=== PATIENT | male | born 1935 | race African-American/Black ===

== ENCOUNTER 2021-06-04 13:49 | Emergency (ER) | payer OTHER, BC ==
--- NOTE | 2021-06-04 15:54 | RAD REPORT ---
EXAM DESCRIPTION: RAD - Chest Single View - 06/04/2021 3:35 pm CLINICAL HISTORY: SOB COMPARISON: Chest Pa And Lat (2 Views) dated 10/31/2017; Chest Single View dated 02/27/2016; CHEST PA AND LAT 2 VIEW dated 01/09/2014; CHEST SINGLE VIEW dated 08/04/2012 FINDINGS: There are a few scattered nonspecific nodular foci within the mid lungs bilaterally. No ed arie or consolidation. The heart size is within normal limits.No acute osseous abnormality. No signifi cant pleural effusions or pneumothorax. IMPRESSION: A few scattered nodular foci within the lungs bilaterally could represent infection. No consolidative process or edema.
[2021-06-04 16:32] LABS: Absolute Lymphocytes (CBC) 1.2 K/uL (0.7-4.9); Basophils % 1.1 % (0-1.3); Hematocrit 37.9 % (39.6-49.0); MPV 8.4 fL (7.6-11.3); RBC Red Blood Cell Count 4.27 M/uL (4.33-5.43)
[2021-06-04 16:34] LABS: Protime INR 0.98
[2021-06-04 16:53] LABS: ALT/SGPT 22 U/L (12-78); AST/SGOT 19 U/L (15-37); Albumin 3.3 g/dL (3.4-5.0); Alkaline Phosphatase 64 U/L (45-117); BUN Blood Urea Nitrogen 50 mg/dL (7-18); Bicarbonate 26 mmol/L (21-32); Bilirubin Direct < 0.1 mg/dL (0-0.2); Bilirubin Total 0.3 mg/dL (0.2-1.0); Glucose Level 98 mg/dL (74-106); Magnesium 1.9 mg/dL (1.8-2.4); NT PRO-BNP 171 pg/mL (<450); Protein, Total 7.1 g/dL (6.4-8.2); Sodium Level 144 mmol/L (136-145); Troponin (Emerg Dept Use Only) < 0.02 ng/mL (0.0-0.045)
--- NOTE | 2021-06-04 17:19 | ER ---
Nurse's Notes [facility] Name: Remigio Akins Age: 86 yrs Sex: Male : 1935 Arrival Date: 06/04/2021 Time: 13:58 Bed 13 Private MD: William Sweet B Diagnosis: Other pneumonia, unspecified organism Presentation: 06/04 14:29 Chief complaint: Patient states: Shortness of breath for several weeks with exertion. kg Cough and sore throat starting this AM. Coronavirus screen: Client denies travel out of the [place] in the last 14 days. At this time, unable to obtain information related to travel outside the [place] At this time, the client does not indicate any symptoms associated with coronavirus-19. Coronavirus screen: Client presents with at least one sign or symptom that may indicate coronavirus-19. Standard/surgical mask placed on the client. Provider contacted for isolation considerations. Ebola Screen: Patient negative for fever greater than or equal to 101.5 degrees Fahrenheit, and additional compatible Ebola Virus Disease symptoms Patient denies exposure to infectious person. Patient denies travel to an Ebola-affected area in the 21 days before illness onset. Initial Sepsis Screen: Does the patient meet any 2 criteria? No. Patient's initial sepsis screen is negative. Does the patient have a suspected source of infection? No. Patient's initial sepsis screen is negative. Risk Assessment: Do you want to hurt yourself or someone else? Patient reports no desire to harm self or others. Onset of symptoms was June 04, 2021. 14:29 Method Of Arrival: Ambulatory kg 14:29 Acuity: RUDDY 3 kg Triage Assessment: 17:40 Respiratory: Onset: The symptoms/episode began/occurred at an unknown time. zb Historical: - Allergies: 14:32 Iodine; kg - PMHx: 14:32 Hypertension; kidney problems; Sleep apnea; kg - PSHx: 14:32 None; kg - Immunization history:: Adult Immunizations up to date, Client reports receiving the 2nd dose of the Covid vaccine, Date received: January 07, 2021. - Social history:: Smoking status: Patient denies any tobacco usage or history of. Screenin:34 Abuse screen: Denies threats or abuse. Denies injuries from another. Nutritional kg screening: No deficits noted. Tuberculosis screening: No symptoms or risk factors identified. Fall Risk None identified. Assessment: 14:35 Respiratory: Airway is patent Respiratory effort is even, unlabored, relaxed. kg 15:57 General: Appears in no apparent distress. Behavior is calm, cooperative. Pain: Denies zb pain. Neuro: Level of Consciousness is awake, alert, Oriented to person, place, time, situation. Cardiovascular: Heart tones S1 S2 present Patient's skin is warm and dry. Rhythm is regular. Respiratory: Reports shortness of breath on exertion Airway is patent Respiratory effort is shallow, Respiratory pattern is regular, symmetrical, Breath sounds with wheezes bilaterally. the patient has moderate shortness of breath. GI: Abdomen is obese. Derm: Skin is intact, is healthy with good turgor. Musculoskeletal: Range of motion: intact in all extremities. 16:30 Reassessment: Patient appears in no apparent distress at this time. Patient and/or zb family updated on plan of care and expected duration. Pain level reassessed. Patient is alert, oriented x 3, equal unlabored respirations, skin warm/dry/pink. 17:38 Reassessment: Patient appears in no apparent distress at this time. Patient and/or zb family updated on plan of care and expected duration. Pain level reassessed. Patient is alert, oriented x 3, equal unlabored respirations, skin warm/dry/pink. Vital Signs: 14:29 BP 129 / 76; Pulse 91; Resp 20; Temp 98.6; Pulse Ox 98% on R/A; Weight 141.11 kg (M); kg Height 5 ft. 10 in. (177.80 cm); Pain 0/10; 15:30 BP 113 / 68; Pulse 84; Resp 19; Pulse Ox 98% on R/A; zb 16:30 BP 118 / 69; Pulse 76; Resp 16; Pulse Ox 97% on R/A; zb 17:35 BP 135 / 65; Pulse 75; Resp 16; Pulse Ox 99% on NC; zb 14:29 Body Mass Index 44.64 (141.11 kg, 177.80 cm) kg ED Course: 13:58 Patient arrived in ED. am2 13:58 William Sweet MD is Private Physician. am2 14:31 Triage completed. kg 14:34 Patient has correct armband on for positive identification. kg 15:05 Brown, Hemalatha, RN is Primary Nurse. zb 15:09 Nam Dominguez PA is PHCP. cp 15:09 Edvin Webster MD is Attending Physician. cp 15:35 XRAY Chest (1 view) In Process Unspecified. EDMS 15:58 Missed attempt(s): 20 gauge in right antecubital area. 22 gauge in left antecubital zb area. 16:23 Initial lab(s) drawn, by me, sent to lab. Inserted saline lock: 20 gauge in right iw antecubital area, using aseptic technique. 17:18 William Sweet MD is Referral Physician. cp 17:40 Arm band placed on. zb 17:40 No provider procedures requiring assistance completed. IV discontinued, intact, zb bleeding controlled, No redness/swelling at site. Pressure dressing applied. Administered Medications: No medications were administered Outcome: 17:19 Discharge ordered by . cp 17:40 Patient left the ED. zb 17:40 Discharged to home ambulatory. zb 17:40 Condition: stable 17:40 Discharge instructions given to patient, Instructed on discharge instructions, follow up and referral plans. Demonstrated understanding of instructions, follow-up care, medications, Prescriptions given X 3. Signatures: Dispatcher [employer] EDMS Blessing eBan RN RN iw Page, Corey, PA PA cp Kusum Szymanski am2 Hemalatha Mai RN RN zKadie Valderrama RN RN kg
--- NOTE | 2021-06-04 17:19 | EDPHYS ---
Physician Documentation [facility] Name: Remigio Akins Age: 86 yrs Sex: Male : 1935 Arrival Date: 06/04/2021 Time: 13:58 Bed 13 Private MD: William Sweet B ED Physician Edvin Webster HPI: 06/04 14:50 This 86 yrs old Black Male presents to ER via Ambulatory with complaints of Breathing cp Difficulty, Shortness Of Breath. 14:50 The patient has shortness of breath with light activity. Onset: The symptoms/episode cp began/occurred 2 week(s) ago. Duration: The symptoms are continuous. Associated signs and symptoms: Pertinent positives: non-productive cough, Pertinent negatives: chest pain, diaphoresis, dizziness, fever, vomiting. Severity of symptoms: in the emergency department the symptoms are unchanged despite home interventions. Historical: - Allergies: 14:32 Iodine; kg - PMHx: 14:32 Hypertension; kidney problems; Sleep apnea; kg - PSHx: 14:32 None; kg - Immunization history:: Adult Immunizations up to date, Client reports receiving the 2nd dose of the Covid vaccine, Date received: January 07, 2021. - Social history:: Smoking status: Patient denies any tobacco usage or history of. ROS: 15:00 Constitutional: Negative for body aches, chills, fever, poor PO intake. cp 15:00 Eyes: Negative for injury, pain, redness, and discharge. cp 15:00 ENT: Positive for sore throat, Negative for ear pain, difficulty swallowing, difficulty handling secretions. 15:00 Cardiovascular: Negative for chest pain, palpitations. 15:00 Respiratory: Positive for cough, with no reported sputum, shortness of breath, on exertion. Negative for wheezing. 15:00 Abdomen/GI: Negative for abdominal pain, nausea, vomiting, and diarrhea. 15:00 Neuro: Negative for altered mental status, headache, syncope, weakness. 15:00 All other systems are negative. Exam: 15:05 Constitutional: The patient appears in no acute distress, alert, awake, cp non-diaphoretic, non-toxic, well developed, well nourished, obese. 15:05 Head/Face: Normocephalic, atraumatic. cp 15:05 Eyes: Periorbital structures: appear normal, Conjunctiva: normal, no exudate, no injection, Sclera: no appreciated abnormality, Lids and lashes: appear normal, bilaterally. 15:05 ENT: External ear(s): are unremarkable, Ear canal(s): are normal, clear, TM's: dullness, bilaterally, Nose: is normal, Mouth: Lips: moist, Oral mucosa: moist, Posterior pharynx: Airway: no evidence of obstruction, patent, Voice: is normal. 15:05 Neck: ROM/movement: is normal, is supple, without pain, no range of motions limitations. 15:05 Chest/axilla: Inspection: normal, Palpation: is normal, no crepitus, no tenderness. 15:05 Cardiovascular: Rate: normal, Rhythm: regular, Edema: ankle edema, that is very mild, JVD: is not appreciated. 15:05 Respiratory: the patient does not display signs of respiratory distress, Respirations: normal, no use of accessory muscles, no retractions, labored breathing, is not present, Breath sounds: are clear throughout, no decreased breath sounds, no stridor, no wheezing. 15:05 Abdomen/GI: Inspection: abdomen appears normal, Palpation: abdomen is soft and non-tender, in all quadrants. 15:05 Skin: no rash present. cp 15:05 Neuro: Orientation: to person, place \T\ time. Mentation: is normal, Cerebellar function: is grossly normal, Motor: moves all fours, strength is normal, Sensation: is normal. 15:48 ECG was reviewed by the Attending Physician. cp Vital Signs: 14:29 BP 129 / 76; Pulse 91; Resp 20; Temp 98.6; Pulse Ox 98% on R/A; Weight 141.11 kg (M); kg Height 5 ft. 10 in. (177.80 cm); Pain 0/10; 15:30 BP 113 / 68; Pulse 84; Resp 19; Pulse Ox 98% on R/A; zb 16:30 BP 118 / 69; Pulse 76; Resp 16; Pulse Ox 97% on R/A; zb 17:35 BP 135 / 65; Pulse 75; Resp 16; Pulse Ox 99% on NC; zb 14:29 Body Mass Index 44.64 (141.11 kg, 177.80 cm) kg MDM: 15:29 Patient medically screened. cp 16:00 Differential diagnosis: CHF exacerbation, Chronic Obstructive Pulmonary Disease cp Myocardial Infarction pneumonia, Pneumothorax pulmonary edema, Pulmonary Embolism Sepsis Unstable Angina. 17:19 Data reviewed: vital signs, nurses notes, lab test result(s), EKG, radiologic studies, cp plain films, and as a result, I will discharge patient. 17:19 Test interpretation: by ED physician or midlevel provider: ECG, plain radiologic cp studies. 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 06/04 14:36 Order name: Strep kg 06/04 14:36 Order name: Group A Streptococcus Rapid Sc; Complete Time: 15:18 [facility] 06/04 15:07 Order name: Throat Culture [facility] 06/04 15:18 Order name: Basic Metabolic Panel; Complete Time: 17:11 06/04 17:11 Interpretation: Normal except: CL 109; BUN 50; CRE 2.48; GFR 30. 06/04 15:18 Order name: CBC with Diff; Complete Time: 17:11 06/04 17:12 Interpretation: Normal except: RBC 4.27; HGB 12.0; HCT 37.9; MCHC 31.6; RDW 17.6. 06/04 15:18 Order name: LFT's; Complete Time: 17:11 06/04 17:15 Interpretation: Normal except: ALB 3.3; GLOB 3.8; A/G 0.9. 06/04 15:18 Order name: Magnesium; Complete Time: 17:11 06/04 15:18 Order name: NT PRO-BNP; Complete Time: 17:11 06/04 15:18 Order name: PT-INR; Complete Time: 17:11 06/04 15:18 Order name: Troponin (emerg Dept Use Only); Complete Time: 17:11 06/04 15:19 Order name: Influenza Screen (a \T\ B); Complete Time: 17:11 06/04 17:04 Order name: SARS-COV-2 RT PCR; Complete Time: 17:11 EDMS 06/04 15:18 Order name: XRAY Chest (1 view); Complete Time: 15:55 06/04 15:55 Interpretation: Report review. 06/04 15:18 Order name: EKG; Complete Time: 15:19 06/04 15:18 Order name: Cardiac monitoring; Complete Time: 15:57 06/04 15:18 Order name: EKG - Nurse/Tech; Complete Time: 15:57 06/04 15:18 Order name: IV Saline Lock; Complete Time: 16:24 06/04 15:18 Order name: Labs collected and sent; Complete Time: 16:24 06/04 15:18 Order name: O2 Per Protocol; Complete Time: 15:57 06/04 15:18 Order name: O2 Sat Monitoring; Complete Time: 15:57 cp EC:48 Rate is 82 beats/min. Rhythm is regular. CT interval is normal. QRS interval is normal. cp QT interval is normal. Interpreted by me. Reviewed by me. Administered Medications: No medications were administered Disposition Summary: 06/04/21 17:19 Discharge Ordered Location: Home cp Problem: new cp Symptoms: have improved cp Condition: Stable cp Diagnosis - Other pneumonia, unspecified organism cp Followup: cp - With: William Sweet MD - When: 2 - 3 days - Reason: Recheck today's complaints Discharge Instructions: - Discharge Summary Sheet cp - Community-Acquired Pneumonia, Adult cp Forms: - Medication Reconciliation Form cp - Thank You Letter cp - Antibiotic Education cp - Prescription Opioid Use cp Prescriptions: - albuterol sulfate 90 mcg/actuation Inhalation HFA aerosol inhaler - inhale 1 puff by INHALATION route every 4-6 hours; 1 Inhaler; Refills: 0, cp Product Selection Permitted - Tessalon Perles 100 mg Oral Capsule - take 2 capsule by ORAL route every 8 hours As needed; 20 capsule; Refills: 0, cp Product Selection Permitted - Zithromax Z-Santiago 250 mg Oral Tablet - take 1 tablet by ORAL route as directed for 5 days Day 1 - take two (2) tablets cp one time. Day 2, 3, 4 , 5 take one (1) tablet once daily.; 6 tablet; Refills: 0, Product Selection Permitted Addendum: 06/06/2021 17:07 Co-signature as Attending Physician, Edvin mayers a2 Signatures: Dispatcher [employer] EDMS Nam Dominguez PA PA cp Edvin Webster MD MD ma2 Kadie Ferguson, RN RN kg Corrections: (The following items were deleted from the chart) 06/04 15:44 14:34 Chest Pa And Lat (2 Views)+RAD.RAD.BRZ ordered. EDMS EDMS 16:13 15:19 CORONAVIRUS+MR.LAB.BRZ ordered. EDMS EDMS
[2021-06-04 18:30] VITALS: TEMP 98.6
[2021-06-04 18:34] VITALS: BP 135/65; O2SAT 99
== END 2021-06-04 17:40 | disposition home or self-care (01) ==
LOC: ER 13:49
DX: J18.8 Other pneumonia, unspecified organism (principal); I10 Essential (primary) hypertension; Z91.048 Other nonmedicinal substance allergy status; Z20.822 Contact with and (suspected) exposure to COVID-19
CPT/HCPCS: 93005; 87070; 85025; 80048; 36415; 83735; 85610; 80076; 87081; 84484; 83880; 87804 ×2; 71045; 99284; U0003

== ENCOUNTER 2022-06-29 11:16 | Inpatient (IN) | payer OTHER, BC ==
--- OUTSIDE RECORDS SUMMARY | 2022-06-29 11:19 | XMS REPORT | Continuity of Care Document ---
:1935 Author Organization [facility] t Address [address] [place] [address] 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- Colleg e of left of left 00:00: of eye eye 00 Medicin e 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-21 College borderline borderline 00:00: of findings, findings, 00 Medi alfonso high risk high risk e 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 Colleg 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 00 Medicin cataract cataract e Allergies, Adverse Reactions, Alerts Allergy Allergy Status Severity Reaction(s) Onset Inactive Treating Comm ents Source Name Type Date Date Clinician Iodides Propensi Active Rash 2015-11 [facility] ty to 12-20 College adverse 00:00: of reaction 00 Medicin s to e drug Iodine Propensi Active Rash [facility] ty to 03-21 College adverse 00:00: of reaction 00 Medicin s to e drug Social History Social Habit Start Date Stop Date Quantity Comments Source Alcohol intake [facility] Sex Assigned At [facility] Smoking Status Start Date Stop Date Source Former smoker 2019-08-28 00:00:00 2019-08-28 00:00:00 [facility] Medicine Medications Ordered Filled Start Stop Current Ordering Indication Dosage Frequency Signature Comments Components Source Medication Medication Date Date Medication? Clinician (SIG) Name Name bisoprolol 2017-11 Yes 5mg Take 5 mg [facility] (ZEBETA) 5 1-20 by mouth Colle ge MG tablet 20:34: daily. of 00 Medicin e doxazosin 2017-11 Yes 2mg Take 2 mg Larned maru (CARDURA) 2 1-20 by mouth Rehana ege MG tablet 20:34: daily. of 00 Medicin e allopurinol 2017-11 Yes 300mg Take 300 [facility] (ZYLOPRIM) 1-20 mg by College 300 MG 20:34: mouth of tablet 00 daily. Medicin e losartan-hy 2017-11 Yes 1{tbl} Take 1 Tab Sami drochloroth 1-20 by mouth Rehana ege iazide 20:34: daily. of (HYZAAR) 00 Medicin 100-25 MG e per tablet amlodipine 2017-11 Yes 10mg Take 10 mg [facility] (NORVASC) 1-20 by mouth Colleg e 10 MG 20:34: daily. of tablet 00 Medicin e spironolact 2017-11 Yes 25mg Take 25 mg [facility] one 1-20 by mouth [place] (ALDACTONE) 20:34: daily. of 25 MG 00 Medicin tablet e bumetanide 2017-11 Yes .5mg Take 0.5 Larned maru (BUMEX) 0.5 1-20 mg by [place] MG tablet 20:34: mouth of 00 daily. Medicin e pediatric 2017-11 Yes 1{tbl} Take 1 Tab [facility] multivitami 1-20 by mouth Rehana ege n-fluoride 20:34: daily. of (POLY--FL 00 Medicin OR) 0.25 MG e chewable tablet Cyanocobala 2017-11 Yes Take by Larned maru min 1-20 mouth. [place] (VITAMIN B 20:34: of 12 OR) 00 Medicin e Loteprednol 2014-11 2019- No 1[drp] Place 1 [facility] Etabonate 0-01 10-16 Drop into Rehana ege (LOTEMAX) 00:00: 00:00 the left of 0.5 % GEL 00 :00 eye 3 Medicin times e daily. trimethopri 2014-11 2019- No 1[drp] Place 1 [facility] m-polymyxin 0-01 10-16 Drop into Co llege b 00:00: 00:00 the left of (POLYTRIM) 00 :00 eye 3 Medicin ophthalmic times e solution daily. Loteprednol 2019- No 1[drp] Place 1 [facility] Etabonate 06-24 10-16 Drop into Rehana ege (LOTEMAX) 00:00: 00:00 the right of 0.5 % GEL 00 :00 eye four Medici n times e daily. Nepafenac 2019- No 1[drp] Place 1 [facility] (ILEVRO) 8 10-16 Drop into Colle ge 0.3 % SUSP 00:00: 00:00 the right o f 00 :00 eye daily. Medicin e moxifloxaci 2019- No 1[drp] Place 1 [facility] n (VIGAMOX) 06-24 10-16 Drop into Co llege 0.5 % 00:00: 00:00 the right of ophthalmic 00 :00 eye 3 Medicin solution times e daily. Start the day before surgery Procedures Procedure Date / Time Performed Performing Clinician [facility] e OCT, OPTIC NERVE - OU 2019-08-28 19:09:06 Jem [facility] BOTH EYES Medicine CANTOR VISUAL FIELD 2019-08-28 18:15:56 [place], [facility] OU - BOTH EYES Medicine Plan of Care Planned Activity Planned Date Details Comments Source Future Scheduled Test MEDICARE AWV [code = [facility] MEDICARE AWV] Medicine Future Scheduled Test TETANUS SHOT (ADULT) [facility] [code = TETANUS SHOT Medicin e (ADULT)] Future Scheduled Test FALL SCREEN [code = [facility] FALL SCREEN] Medicine Future Scheduled Test PNEUMOVAX >=65 [facility] (PPSV23) [code = Medicine PNEUMOVAX >=65 (PPSV23)] Future Scheduled Test PREVNAR >= 65 (PCV13) [facility] [code = PREVNAR >= 65 Medici ne (PCV13)] Future Scheduled Test FLU VACCINE > 6 [facility] [code = FLU Medicine VACCINE > 6 MONTHS] Encounters Start End Encounter Admission Attending Care Care Encounter Source Date/Time Date/Time Type Type Clinicians Facility Department ID 2021-09-08 2021-09-08 Outpatient JOSE CHO BC [id number] [facility] 09:32:32 12:36:49 ANDRES dodson of Medicin e 2019-08-28 2019-08-28 Office Andres Cho [id number] [facility] 12:52:46 15:14:35 Visit 3, Ods AMBULATOR [id number] College Field-Hrt, Visual Y [id number] of [id number] [facility] 300 e Results Test Description Test Time Test Comments Results Result [facility] e Comments CANTOR VISUAL 2019-08-28 VF Interpretation Ba y[facility] FIELD - OU - BOTH 20:14:12 OD OS Reliability [place] of EYES Good Good Defect Medicine None None Progression no no OCT, OPTIC NERVE 2019-08-28 OCT Glaucoma [facility] - OU - BOTH EYES 20:13:10 Interpretation OD C ollege of OS Quality Good Medicine Good Interpretation Normal Normal Change Stable Stable
[2022-06-29 11:59] LABS: Absolute Lymphocytes (CBC) 1.4 K/uL (0.7-4.9); Lymphocytes % 25.5 % (15.3-44.8); MCV 88.9 fL (80-100); MPV 8.5 fL (7.6-11.3); RBC Red Blood Cell Count 4.06 M/uL (4.33-5.43)
--- NOTE | 2022-06-29 12:21 | RAD REPORT ---
EXAM DESCRIPTION: RAD - Chest Single View - 06/29/2022 11:47 am CLINICAL HISTORY: SOB Chest pain. COMPARISON: Chest Single View dated 06/04/2021; Chest Pa And Lat (2 Views) dated 10/31/2017; Chest Si ngle View dated 02/27/2016; CHEST PA AND LAT 2 VIEW dated 01/09/2014 FINDINGS: Portable technique limits examination quality. Mild interstitial pulmonary edema suspected. The heart is mildly enlarged in size. No displaced fract ures. IMPRESSION: Mild CHF is probably present.
[2022-06-29 12:22] LABS: Potassium 3.9 mmol/L (3.5-5.1); Troponin High Sensitivity 25.7 pg/mL (<58.9)
[2022-06-29] MEDS ORDERED: IPRATROPIUM BROM 0.5MG/2.5ML ONE ×2 (12:41→19:55)
[2022-06-29] MEDS ORDERED: ALBUTEROL 2.5 MG/3 ML NEB SOL ONE ×2 (12:41→19:55)
--- NOTE | 2022-06-29 15:04 | RAD REPORT ---
EXAM DESCRIPTION: NM - Vent Perfusion VQ Scan - 06/29/2022 2:44 pm CLINICAL HISTORY: shortness of breath COMPARISON: Portable chest 06/29/2022 TECHNIQUE: The patient was administered 19.5 mCi Xenon 133 gas with posterior projection inspiration , equilibrium, and washout views obtained. The patient was then administered 7.2 mCi Tc-99m MAA label ed RBCs followed by standard 8 view protocol. FINDINGS: There is good distribution of the Xenon with no ventilation defects identified. No signifi cant air-trapping seen. There is decreased perfusion in the lower right lung field with no radiographic abnormality or dilati on match defect. Size of the defect would involve multiple segments. No significant perfusion abnorm ality of the left lung field. IMPRESSION: High probability V/Q scan for pulmonary embolism.
--- NOTE | 2022-06-29 15:34 | ER ---
Nurse's Notes [facility] Name: Remigio Akins Age: 87 yrs Sex: Male : 1935 Arrival Date: 06/29/2022 Time: 11:18 Bed 5 Private MD: William Sweet B Diagnosis: Pulmonary embolism without acute cor pulmonale;Shortness of breath;Congestive Heart Failure Presentation: 06/29 11:27 Chief complaint: Patient states: Pt feels short of breath upon exertion since May iw ; audible wheezes. Coronavirus screen: Vaccine status: Patient reports receiving the 2nd dose of the covid vaccine. Client denies travel out of the [place] in the last 14 days. Ebola Screen: Patient negative for fever greater than or equal to 101.5 degrees Fahrenheit, and additional compatible Ebola Virus Disease symptoms Patient denies exposure to infectious person. Patient denies travel to an Ebola-affected area in the 21 days before illness onset. Initial Sepsis Screen: Does the patient meet any 2 criteria? RR > 20 per min. HR > 90 bpm. Does the patient have a suspected source of infection? Yes: Productive cough/pneumonia. Risk Assessment: Do you want to hurt yourself or someone else? Patient reports no desire to harm self or others. Onset of symptoms was June 03, 2022. 11:27 Method Of Arrival: Ambulatory iw 11:27 Acuity: RUDDY 2 iw Triage Assessment: 11:29 General: Appears uncomfortable, obese, well groomed, well nourished, Behavior is calm, iw cooperative, appropriate for age. Pain: Denies pain. Respiratory: Reports shortness of breath at rest on exertion cough that is productive, Onset: The symptoms/episode began/occurred gradually, the patient has moderate shortness of breath. Historical: - Allergies: 11: Iodine; iw - PMHx: 11: Hypertension; kidney problems; Sleep Apnea; Gout; iw - Immunization history:: Adult Immunizations up to date. - Social history:: Smoking status: Patient denies any tobacco usage or history of. Screenin:30 Abuse screen: Denies threats or abuse. Denies injuries from another. Nutritional iw screening: No deficits noted. Tuberculosis screening: No symptoms or risk factors identified. Fall Risk None identified. Assessment: 11:30 General: SEE TRIAGE NOTE. bp 12:47 Reassessment: No changes from previously documented assessment. Patient and/or family bp updated on plan of care and expected duration. Pain level reassessed. Cardiovascular: Rhythm is sinus rhythm. Respiratory: Airway is patent Respiratory effort is labored, Breath sounds with wheezes bilaterally. 14:53 Reassessment: PT RETURNED FROM V/Q SCAN. bp 17:00 Reassessment: ADMIT IN PROCESS. bp 18:00 Reassessment: No changes from previously documented assessment. Patient and/or family bp updated on plan of care and expected duration. Pain level reassessed. REPEAT COAGS DUE AT 1999. Vital Signs: 11:27 BP 154 / 76; Pulse 96; Resp 22; Temp 98.6; Pulse Ox 97% ; Weight 136.08 kg; Height 5 iw ft. 11 in. (180.34 cm); Pain 0/10; 12:42 BP 108 / 62; Pulse 85; Resp 24; Pulse Ox 99% ; bp 13:20 BP 121 / 64; Pulse 90; Resp 16; Pulse Ox 98% on Nebulizer Mask; ld1 14:53 BP 136 / 54; Pulse 101; Resp 25; Pulse Ox 96% ; bp 17:04 BP 134 / 72; Pulse 90; Resp 25; Pulse Ox 95% on R/A; ld1 18:07 BP 124 / 68; Pulse 89; Resp 19; Pulse Ox 98% ; bp 11:27 Body Mass Index 41.84 (136.08 kg, 180.34 cm) iw ED Course: 11:18 Patient arrived in ED. mr 11:18 William Sweet MD is Private Physician. mr 11:19 Stephane Hallman DO is Attending Physician. ms3 11:22 Austin York, ERENDIRA is Primary Nurse. bp 11:29 Triage completed. iw 11:29 Arm band placed on right wrist. iw 11:30 Patient has correct armband on for positive identification. iw 11:36 Inserted saline lock: 20 gauge in right forearm, using aseptic technique. Blood bp collected. 11:49 XRAY Chest (1 view) In Process Unspecified. EDMS 14:46 VQ scan (Nuclear Medicine) In Process Unspecified. EDMS 15:30 Demetrius Cuellar MD is Hospitalizing Provider. ms3 20:53 No provider procedures requiring assistance completed. Patient admitted, IV remains in as6 place. Administered Medications: 12:40 Drug: Albuterol - atroVENT (ipratropium) (3:1) (2.5 mg - 0.5 mg) 3 ml Route: Nebulizer; ld1 15:27 Follow up: Response: No adverse reaction bp 15:45 Drug: Heparin (DVT/PE Drip) 18 units/kg/hr - (HEParin 33589 units, D5W 500 ml) bp {Co-Signature: tiburcio (Jocelynn Denson RN).} Route: IV; Rate: calculated rate; Site: right forearm; 20:53 Follow up: IV Status: Infusion continued upon admission as6 15:45 Drug: Heparin (DVT/PE- Bolus per protocol) - HEParin 80 units/kg {Co-Signature: rachel1 bp (Jocelynn Denson RN).} Route: IVP; Site: right forearm; 18:06 Follow up: Response: No adverse reaction bp Medication: 11:30 VIS not applicable for this client. bp Outcome: 15:33 Decision to Hospitalize by Provider. ms3 20:53 Admitted to Tele accompanied by tech, via wheelchair, room 401, with chart. as6 20:53 Condition: stable 20:53 Instructed on the need for admit. 20:55 Patient left the ED. as6 Signatures: Dispatcher [employer] SELENENH Candi Randall Irene, RN RN iw Peltier, Brian RN Stephane Tee DO DO ms3 Jocelynn Denson RN RN ld1 Reji Osuna RN RN as6 Jocelynn ramos1 Corrections: (The following items were deleted from the chart) 18:07 17:04 Reassessment: ld1 bp
--- NOTE | 2022-06-29 15:34 | EDPHYS ---
Physician Documentation [facility] Name: Remigio Akins Age: 87 yrs Sex: Male : 1935 Arrival Date: 06/29/2022 Time: 11:18 Bed 5 Private MD: William Sweet B ED Physician Stephane Hallman HPI: 06/29 15:33 This 87 yrs old Black Male presents to ER via Ambulatory with complaints of Breathing ms3 Difficulty, Low O2. 15:33 The patient has shortness of breath with light activity. Onset: The symptoms/episode ms3 began/occurred acutely, 1 month(s) ago. Duration: The symptoms are continuous. The patient's shortness of breath is aggravated by exertion, is alleviated by rest. Associated signs and symptoms: Pertinent negatives: chest pain, loss of consciousness, nausea, vomiting. Severity of symptoms: At their worst the symptoms were severe in the emergency department the symptoms are unchanged Pain is currently a 0 / 10. Historical: - Allergies: 11:29 Iodine; iw - PMHx: 11:29 Hypertension; kidney problems; Sleep Apnea; Gout; iw - Immunization history:: Adult Immunizations up to date. - Social history:: Smoking status: Patient denies any tobacco usage or history of. ROS: 15:33 Constitutional: Negative for fever, and chills. Neck: Negative for injury, pain, and ms3 swelling, Cardiovascular: Negative for chest pain, and palpitations. 15:33 Abdomen/GI: Negative for abdominal pain, nausea, vomiting, diarrhea, and constipation, MS/Extremity: Negative for injury and deformity, Skin: Negative for injury, rash, and discoloration, Neuro: Negative for headache, weakness, numbness, tingling. Psych: Negative for depression, anxiety, suicide ideation, homicidal ideation, and hallucinations. 15:33 Respiratory: Positive for shortness of breath. 15:33 All other systems are negative. Exam: 15:33 Constitutional: This is a well developed, well nourished patient who is awake, alert, ms3 and in no acute distress. Head/Face: Normocephalic, atraumatic. Neck: Trachea midline, no cervical lymphadenopathy. Supple, full range of motion without nuchal rigidity, or vertebral point tenderness. No Meningismus. Chest/axilla: Normal chest wall appearance and motion. Nontender with no deformity. Cardiovascular: Regular rate and rhythm with a normal S1 and S2. No gallops, murmurs, or rubs. Normal PMI, no JVD. No pulse deficits. Abdomen/GI: Soft, non-tender, with normal bowel sounds. No distension or tympany. No guarding or rebound. No evidence of tenderness throughout. Skin: Warm, dry with normal turgor. Normal color with no rashes, no lesions, and no evidence of cellulitis. Neuro: Awake and alert, GCS 15, oriented to person, place, time, and situation. Cranial nerves II-XII grossly intact. Motor strength 5/5 in all extremities. Sensory grossly intact. Cerebellar exam normal. Normal gait. Psych: Awake, alert, with orientation to person, place and time. Behavior, mood, and affect are within normal limits. 15:33 Respiratory: mild respiratory distress is noted, Respirations: normal, Breath sounds: wheezing: expiratory that is mild, Respiratory rate: 25 16:14 ECG was reviewed by the Attending Physician. ms3 Vital Signs: 11:27 BP 154 / 76; Pulse 96; Resp 22; Temp 98.6; Pulse Ox 97% ; Weight 136.08 kg; Height 5 iw ft. 11 in. (180.34 cm); Pain 0/10; 12:42 BP 108 / 62; Pulse 85; Resp 24; Pulse Ox 99% ; bp 13:20 BP 121 / 64; Pulse 90; Resp 16; Pulse Ox 98% on Nebulizer Mask; ld1 14:53 BP 136 / 54; Pulse 101; Resp 25; Pulse Ox 96% ; bp 17:04 BP 134 / 72; Pulse 90; Resp 25; Pulse Ox 95% on R/A; ld1 18:07 BP 124 / 68; Pulse 89; Resp 19; Pulse Ox 98% ; bp 11:27 Body Mass Index 41.84 (136.08 kg, 180.34 cm) iw MDM: 11:29 Patient medically screened. ms3 15:33 Differential diagnosis: Anemia CHF exacerbation, Chronic Obstructive Pulmonary Disease ms3 pneumonia, pulmonary edema, Pulmonary Embolism. Data reviewed: vital signs, nurses notes, lab test result(s), EKG, radiologic studies, and as a result, I will admit patient. Data interpreted: potline monitor: rate is 92 beats/min, rhythm is normal sinus rhythm, regular, with no ectopy, Interpretation: normal rate, normal rhythm. Counseling: I had a detailed discussion with the patient and/or guardian regarding: the historical points, exam findings, and any diagnostic results supporting the discharge/admit diagnosis, lab results, radiology results, the need for further work-up and treatment in the hospital. 17:07 ED course: On reevaluation patient symptoms improved, patient is alert and oriented x4, ms3 no apparent distress, nontoxic. . 06/29 11:29 Order name: Basic Metabolic Panel; Complete Time: 12:31 ms3 06/29 11:29 Order name: CBC with Diff; Complete Time: 12:31 ms3 06/29 11:29 Order name: NT PRO-BNP; Complete Time: 12:31 ms3 06/29 11:29 Order name: Troponin HS; Complete Time: 12:31 ms3 06/29 11:29 Order name: D-Dimer; Complete Time: 12:31 ms3 06/29 15:27 Order name: Ptt, Activated ms3 06/29 11:29 Order name: XRAY Chest (1 view); Complete Time: 12:31 ms3 06/29 12:18 Order name: VQ scan (Nuclear Medicine); Complete Time: 15:25 ms3 06/29 15:27 Order name: PT-INR ms3 06/29 17:02 Order name: SARS RAPID bd 06/29 17:59 Order name: SARS-COV-2 Antigen Rapid [facility] 06/29 18:08 Order name: T4 Free [facility] 06/29 18:08 Order name: Thyroid Stimulating Hormone [facility] 06/29 11:29 Order name: EKG; Complete Time: 11:33 ms3 06/29 11:29 Order name: Cardiac monitoring; Complete Time: 11:30 ms3 06/29 11:29 Order name: EKG - Nurse/Tech; Complete Time: 11:30 ms3 06/29 11:29 Order name: IV Saline Lock; Complete Time: 11:35 ms3 06/29 11:29 Order name: Labs collected and sent; Complete Time: 11:35 ms3 06/29 11:29 Order name: O2 Per Protocol; Complete Time: 11:30 ms3 06/29 11:29 Order name: O2 Sat Monitoring; Complete Time: 11:30 ms3 EC:14 Rate is 93 beats/min. Rhythm is regular. QRS [place] is Normal. [place] interval is normal. QRS ms3 interval is normal. Clinical impression: NSR w/ Non-specific ST/T Changes. Interpreted by me. Reviewed by me. Administered Medications: 12:40 Drug: Albuterol - atroVENT (ipratropium) (3:1) (2.5 mg - 0.5 mg) 3 ml Route: Nebulizer; ld1 15:27 Follow up: Response: No adverse reaction bp 15:45 Drug: Heparin (DVT/PE Drip) 18 units/kg/hr - (HEParin 25761 units, D5W 500 ml) bp {Co-Signature: ld1 (Jocelynn Denson RN).} Route: IV; Rate: calculated rate; Site: right forearm; 20:53 Follow up: IV Status: Infusion continued upon admission as6 15:45 Drug: Heparin (DVT/PE- Bolus per protocol) - HEParin 80 units/kg {Co-Signature: ld1 bp (Jocelynn Denson RN).} Route: IVP; Site: right forearm; 18:06 Follow up: Response: No adverse reaction bp Disposition Summary: 06/29/22 15:33 Hospitalization Ordered Hospitalization Status: Inpatient Admission ms3 Provider: Demetrius Cuellar ms3 Condition: Stable ms3 Problem: new ms3 Symptoms: are unchanged ms3 Bed/Room Type: Standard ms3 Location: Telemetry/MedSurg (Inpatient)(06/29/22 20:16) cg Room Assignment: [facility](06/29/22 20:16) cg Diagnosis - Pulmonary embolism without acute cor pulmonale ms3 - Shortness of breath ms3 - Congestive Heart Failure ms3 Forms: - Medication Reconciliation Form ms3 - SBAR form ms3 Signatures: Dispatcher [employer] EDMS Nini Lu Irene, RN RN iw Laura Garcia RN RN Austin York, RN RN Stephane Hankins DO DO ms3 Jocelynn Denson RN RN ld1 Reji Osuna RN as6 Jocelynn Denson RN ld1 Corrections: (The following items were deleted from the chart) 17:06 17:03 This 87 yrs old Black Male presents to ER via Ambulatory with complaints of ms3 Breathing Difficulty, Low O2. ms3 18:52 15:33 Telemetry/MedSurg (Inpatient) ms3 bd 18:52 15:33 ms3 bd 20:16 18:52 [facility] ER HOLD bd cg 20:16 18:52 ERHOLD- bd cg
[2022-06-29 16:15] LABS: Protime INR 1.04
[2022-06-29] MEDS ORDERED: HEPARIN 5000 UNIT/ML 1 ML VIAL ONE (16:43)
[2022-06-29] MEDS ORDERED: HEPARIN/D5W 25,000 UNIT/500 ML BAG IV ONE (16:43)
[2022-06-29] MEDS ORDERED: HYDROCODONE/APAP 5/325 MG TAB PO PRN (16:57)
[2022-06-29] MEDS ORDERED: ACETAMINOPHEN 500 MG TAB PO PRN (16:59)
[2022-06-29] MEDS ORDERED: ONDANSETRON 4 MG/2 ML VIAL IV PRN (16:59)
[2022-06-29] MEDS ORDERED: HEPARIN/D5W 25,000 UNIT/500 ML BAG IV SCH (17:00)
[2022-06-29] MEDS ORDERED: LABETALOL 20 MG/4ML SYRINGE IV PRN (17:01)
--- NOTE | 2022-06-29 17:08 | P.HP ---
Certification for Inpatient Patient admitted to: Inpatient With expected LOS: >2 Midnights Patient will require the following post-hospital care: None Practitioner: I am a practitioner with admitting privileges, knowledge of patient current condition, hospital course, and medical plan of care. Services: Services provided to patient in accordance with Admission requirements found in Title 42 Section 412.3 of the Code of Federal Regulations Patient History Date of Service: 06/29/22 Reason for admission: Shortness of breath History of Present Illness: Patient is an 87-year-old male with a past medical history significant for GERD, hypertension, CKD, BPH, CHF, morbid obesity who presents with complaint of shortness of breath. Patient reported that he tested positive for COVID-19 infection on June 03 and has been short of breath since then. Patient indicated that he tested negative for COVID-19 infection 5 days ago. Patient reported ass ociated signs and symptoms of cough and chest congestion. Patient denies any other signs and symptoms. Symptoms are aggravated with exertion and relieved by nothing. Patient decided to present to the hospital due to worsening symptoms. Allergies iodine Adverse Reaction (Mild, Verified 08/04/12 02:57) Rash Home Medications: Allopurinol 1 tab PO DAILY 02/27/16 Bisoprolol Fumarate [Zebeta] 1 tab PO BID 02/27/16 Bumetanide [Bumex*] 1 mg PO BID 02/27/16 Doxazosin [Cardura] 2 mg PO BEDTIME 02/27/16 Losartan/Hydrochlorothiazide [Losartan-Hctz 100-25 mg Tab] 1 each PO DAILY 02/27/16 Multivitamin [Daily Multiple Vitamin] 1 tab PO DAILY 02/27/16 Guaifen W/Codeine Syrup [ROBITUSSIN A-C Syrup] 10 ml PO BID #150 ml 02/29/16 Levofloxacin [Levaquin] 500 mg PO DAILY #7 tablet 02/29/16 predniSONE [Deltasone] 20 mg PO DAILY #7 tab 02/29/16 - Past Medical/Surgical History Diabetic: Yes -: hypertension -: gout -: enlarged prostate Past Surgical History: Reviewed- Non-Contributory - Family History Father -: Heart disease, Hypertension, Diabetes - Social History Smoking Status: Never smoker Alcohol use: No CD- Drugs: No Caffeine use: Yes Review of Systems General: Unremarkable Eyes: Unremarkable ENT: Unremarkable Respiratory: Cough, SOB with Excertion, Other (Chest congestion.) Cardiovascular: Unremarkable Gastrointestinal: Unremarkable Genitourinary: Unremarkable Musculoskeletal: Unremarkable Integumentary: Unremarkable Neurological: Unremarkable Lymphatics: Unremarkable Physical Examination - Physical Exam General: Alert, Oriented x3 HEENT: Atraumatic, Normocephalic, PERRLA Neck: Supple, 2+ carotid pulse no bruit, JVD not distended Respiratory: Clear to auscultation bilaterally, Normal air movement Cardiovascular: No edema, Normal pulses, Normal S1 S2 Capillary refill: <2 Seconds Gastrointestinal: Normal bowel sounds, Soft and benign Musculoskeletal: No clubbing, No swelling, No contractures Integumentary: No rashes, No breakdown, No tenderness/swelling Neurological: Normal speech, Normal tone Lymphatics: No axilla or inguinal lymphadenopathy - Studies Laboratory Data (last 24 hrs) 06/29/22 15:56: PT 11.5, INR 1.04, APTT 27.6 06/29/22 11:45: WBC 5.60, Hgb 11.5 L, Hct 36.0 L, Plt Count 143 L 06/29/22 11:45: Sodium 139, Potassium 3.9, BUN 38 H, Creatinine 2.66 H, Glucose 115 H Assessment and Plan - Plan --Pulmonary embolism. Noted on VQ scan. Patient placed on heparin drip. Echocardiogram ordered to assess for RV strain. Continue neb treatment with albuterol\Atrovent. --Acute on chronic systolic or diastolic CHF exacerbation. No echocardiogram on file. Echocardiogram ordered to assess LV\valvular function and wall motion. Patient placed on diuresis with Lasix. Daily weight and strict I/O. --CKD 4. Nephrology consulted for further management. Avoid nephrotoxins and MADYSON inhibitors.. --Hypertension. We will hold off on MADYSON inhibitors. Continue home medications and labetalol as needed. --GERD. Patient placed on Protonix. --Gout. Continue allopurinol. --Class III obesity. Likely secondary to sedentary lifestyle and excess calories intake. Patient counseled on weight reduction, diet and exercise therapy. --BPH. Continue home medication. --DVT prophylaxis with heparin drip. Discharge Plan: Home - Advance Directives Does patient have a Living Will: No Does patient have a Durable POA for Healthcare: No - Code Status/Comfort Care Code Status Assessed: Yes Code Status: Full Code Physician Review: Patient Assessed, Agree with Above Assessment and Plan Critical Care: No
[2022-06-29] MEDS: ALBUTEROL 2.5 MG/3 ML NEB SOL NEB SCH ×3 (17:13→23:30)
[2022-06-29 17:58] LABS: SARS-CoV-2 Antigen Rapid Res Negative (Negative)
[2022-06-29 18:07] LABS: Thyroid Stimulating Hormone 0.792 uIU/mL (0.360-3.740)
[2022-06-29] MEDS: IPRATROPIUM BROM 0.5MG/2.5ML NEB SCH ×2 (19:20→23:30)
[2022-06-29 19:58] VITALS: BMI 41.8
[2022-06-29] MEDS: FUROSEMIDE 40 MG/4 ML VIAL IV SCH (20:00)
[2022-06-29] MEDS ORDERED: FUROSEMIDE 40 MG/4 ML VIAL ONE (20:11)
[2022-06-29] MEDS ORDERED: DOXAZOSIN 2 MG TAB ONE (20:19)
[2022-06-29] MEDS: DOXAZOSIN 2 MG TAB PO SCH (20:49)
[2022-06-29] MEDS: BISOPROLOL 5 MG TABLET PO SCH (21:00)
[2022-06-29 23:54] LABS: Specific Gravity 1.015 (1.005-1.030); Urine Bilirubin Negative (Negative); Urine Blood Trace-intact (Negative); Urine Clarity Clear (Clear); Urine Color Yellow (Yellow); Urine Glucose Negative (Negative); Urine Protein Negative (Negative); Urine Urobilinogen 0.2 mg/dL (0.2-1.0)
[2022-06-30 00:33] LABS: Urine Bacteria <20 /HPF (<20); Urine RBC <5 /HPF (None Seen)
[2022-06-30 02:35] LABS: Hematocrit 34.4 % (39.6-49.0); Lymphocytes % 15.9 % (15.3-44.8); MPV 8.1 fL (7.6-11.3); RBC Red Blood Cell Count 3.87 M/uL (4.33-5.43)
[2022-06-30] MEDS: ALBUTEROL 2.5 MG/3 ML NEB SOL NEB SCH ×2 (03:15→08:47)
[2022-06-30 07:24] LABS: Magnesium 1.9 mg/dL (1.8-2.4); Phosphorus 3.6 mg/dL (2.5-4.9)
[2022-06-30] MEDS ORDERED: PANTOPRAZOLE 40MG TABLET PO SCH (07:30)
--- NOTE | 2022-06-30 07:55 | EKG ---
Test Date: 2022-06-29 Test Time: 11:26:40 Machine Scallop Cutter: AILYN MEASUREMENT RESULTS: Intervals: Rate: 93 SD: 162 QRSD: 86 QT: 390 QTc: 484 [place]: P: 58 SD: 162 QRS: -46 T: 20 INTERPRETIVE STATEMENTS: Normal sinus rhythm Left axis deviation Nonspecific T wave abnormality Abnormal ECG Compared to ECG 06/04/2021 15:40:24 Left-axis deviation now present T-wave abnormality now present Electronically Signed On 06-30-22 07:54:28 CDT by Sulaiman Grimaldo
[2022-06-30] MEDS: ASPIRIN EC 81 MG TAB PO SCH (08:10)
[2022-06-30] MEDS: BISOPROLOL 5 MG TABLET PO SCH (08:11)
[2022-06-30] MEDS: allopurinoL 300 MG TAB PO SCH (08:11)
[2022-06-30] MEDS: MULTIVITAMIN TAB PO SCH (08:11)
[2022-06-30] MEDS: FUROSEMIDE 40 MG/4 ML VIAL IV SCH (08:11)
[2022-06-30] MEDS ORDERED: ALBUTEROL 2.5 MG/3 ML NEB SOL NEB PRN (08:23)
--- NOTE | 2022-06-30 08:31 | P.CNS ---
Date of Consult: 06/30/22 Reason for Consult: Pulmonary embolism Hartness of breath Chief Complaint: Shortness of breath History of Present Illness: Patient is 87 years of age hypertension chronic renal disease morbid obesity sleep apnea noncompliant history of COVID has been having progressive shortness of breath is admitted with hypoxemia high probability VQ scan. Lower extremity edema Allergies iodine Adverse Reaction (Mild, Verified 06/29/22 21:27) Rash Home Medications: Allopurinol 1 tab PO DAILY 02/27/16 Bisoprolol Fumarate [Zebeta] 5 mg PO DAILY 02/27/16 Bumetanide [Bumex*] 1 mg PO BID 02/27/16 Losartan/Hydrochlorothiazide [Losartan-Hctz 100-25 mg Tab] 100 mg PO DAILY 02/27/16 Multivitamin [Daily Multiple Vitamin] 1 tab PO DAILY 02/27/16 Amiloride HCl 5 mg PO DAILY 06/29/22 - Past Medical/Surgical History Diabetic: Yes -: hypertension -: gout -: enlarged prostate -: Sleep apnea -: Coronavirus infection - Family History Father Medical History: Heart disease, Hypertension, Diabetes - Social History Smoking Status: Unknown if ever smoked Alcohol use: No CD- Drugs: No Caffeine use: Yes Review of Systems Unremarkable General: Weakness Respiratory: Shortness of Breath Cardiovascular: Edema Physical Examination Temp Pulse Resp BP Pulse Ox 97.4 F 72 16 113/58 L 95 06/30/22 07:43 06/30/22 07:43 06/30/22 07:43 06/30/22 07:43 06/30/22 07:43 General: Alert, In no apparent distress, Oriented x3 Neck: Supple Respiratory: Diminished Cardiovascular: Regular rate/rhythm, Normal S1 S2, Edema Gastrointestinal: Normal bowel sounds, Soft and benign Musculoskeletal: No clubbing, Swelling Integumentary: No rashes, No breakdown Laboratory Data (last 24 hrs) 06/29/22 15:56: PT 11.5, INR 1.04, APTT 27.6 06/29/22 11:45: WBC 5.60, Hgb 11.5 L, Hct 36.0 L, Plt Count 143 L 06/29/22 11:45: Sodium 139, Potassium 3.9, BUN 38 H, Creatinine 2.66 H, Glucose 115 H - Problems (1) Pulmonary embolism Current Visit: Yes Status: Acute Plan: Age 87 diagnosed with COVID last month has been having progressive dyspnea lower extremity edema probability 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 daily in addition to spironolactone echocardiogram is pending doubt COVID-pneumonia Qualifiers: Heart failure chronicity: acute on chronic Qualified Code(s): I50.33 - A cute on chronic diastolic (congestive) heart failure
[2022-06-30] MEDS: IPRATROPIUM BROM 0.5MG/2.5ML NEB SCH ×3 (08:47→20:50)
[2022-06-30] MEDS ORDERED: FUROSEMIDE 40 MG/4 ML VIAL IV SCH ×2 (09:00)
[2022-06-30] MEDS ORDERED: predniSONE 20 MG TAB PO SCH (09:00)
[2022-06-30] MEDS ORDERED: SPIRONOLACTONE 25 MG TABLET PO SCH (09:00)
[2022-06-30] MEDS: APIXABAN 5 MG TABLET PO SCH ×2 (09:01→20:45)
--- NOTE | 2022-06-30 11:49 | P.CNS ---
Date of Consult: 06/30/22 Reason for Consult: CKD Requesting Physician: Demetrius Cuellar Chief Complaint: Shortness of breath History of Present Illness: Patient is an 87-year-old AAM with a past medical history of obesity, hypertension, CKD followed by [facility], chronic peripheral edema and other who reports progressive BOLTON for some time leading to his presentation to the hospital. Pt reports compliance with medications and has been taking diuretic therapy chronically. Pt reports testing positive for COVID-19 infection earlier in May but denies being diagnosed with related PNA. Patient denies CP. Pt underwent V/Q scan imaging that was high probability for PE. Pt Allergies iodine Adverse Reaction (Mild, Verified 06/29/22 21:27) Rash Home Medications: Allopurinol 1 tab PO DAILY 02/27/16 Bisoprolol Fumarate [Zebeta] 5 mg PO DAILY 02/27/16 Bumetanide [Bumex*] 1 mg PO BID 02/27/16 Losartan/Hydrochlorothiazide [Losartan-Hctz 100-25 mg Tab] 100 mg PO DAILY 02/27/16 Multivitamin [Daily Multiple Vitamin] 1 tab PO DAILY 02/27/16 Amiloride HCl 5 mg PO DAILY 06/29/22 - Past Medical/Surgical History Diabetic: Yes -: hypertension -: gout -: enlarged prostate -: Sleep apnea -: Coronavirus infection -: CKD IV followed by Dr. Vazquez - Family History Father Medical History: Heart disease, Hypertension, Diabetes - Social History Smoking Status: Unknown if ever smoked Alcohol use: No CD- Drugs: No Caffeine use: Yes Review of Systems General: Unremarkable Eyes: Unremarkable ENT: Unremarkable Respiratory: SOB with Excertion Cardiovascular: Unremarkable Gastrointestinal: Unremarkable Genitourinary: Unremarkable Musculoskeletal: Unremarkable Integumentary: Unremarkable Neurological: Unremarkable Lymphatics: Unremarkable Physical Examination Temp Pulse Resp BP Pulse Ox 97.6 F 95 H 18 108/54 L 93 06/30/22 11:35 06/30/22 11:35 06/30/22 11:35 06/30/22 11:35 06/30/22 11:35 General: Alert, In no apparent distress, Oriented x3 HEENT: Atraumatic, EOMI Neck: Supple Respiratory: Normal air movement, Other (Non tachypnec, no rhonchi) Cardiovascular: Normal pulses, Regular rate/rhythm, Normal S1 S2 (1+ distal LE edema b/l) Gastrointestinal: Soft and benign (Obese), No tenderness Musculoskeletal: No contractures, Clubbing Integumentary: No rashes, No breakdown Neurological: Normal speech, Normal affect Laboratory Data (last 24 hrs) 06/29/22 15:56: PT 11.5, INR 1.04, APTT 27.6 06/29/22 11:45: WBC 5.60, Hgb 11.5 L, Hct 36.0 L, Plt Count 143 L 06/29/22 11:45: Sodium 139, Potassium 3.9, BUN 38 H, Creatinine 2.66 H, Glucose 115 H Conclusions/Impression: 1. Abnormal results of kidney function studies 2. 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 Acute Rt sided PE, based on V/Q scan 4. Chronic diastolic CHF per reports 5. Peripheral edema, other 6. Obesity -Pt's renal function tests appear to be largely within baseline range, no major pre-renal signs seen despite the OP use of both loop and thiazide diuretics. -Agree with plan for echo to assess Rt sided heart function with PE as well as LVEF, pulm pressures, other -BNP levels elevated, cont loop diuretics with PO Bumex on discharge but ok to replace Amiloride with Spironolactone if pt has HFpEF/diastolic CHF given benefits of latter specifically in improving left ventricular diastolic function in studies -Trend BP closely, given some relatively lower readings at times, recommend lowering Losartan (currently held) to 50 mg qd on discharge and applying a holding parameter to hold if SBP < 110 mmHg. -Ok to cont Allopurinol at current dose -Cont f/u with Dr. Vazquez upon discharge. Thank you for this referral, Luis Miguel Rodriguez MD, [facility] [place] [facility]
--- NOTE | 2022-06-30 18:22 | P.PN ---
Date of Service: 06/30/22 Subjective: No significant changes in his shortness of breath Remains on room air, gets dyspnea with exertion walking 15-20 feet labored respirations at rest reports lower extremity swelling has been better over last week ROS: 10 point ROS as noted above, otherwise negative Physical exam GEN: Alert, oriented HEENT: Normal conjunctiva, sclera anicteric CV: Regular rate and rhythm, 1+ b/l lower extremity edema to knees Pulm: Mildly labored respirations on room air, b/l rales ABD: Soft, nontender, nondistended Integumentary: No rashes Neuro: Normal speech, normal affect Problem List Acute hypoxic respiratory failure secondary to pulmonary embolism Acute on chronic CHF, unknown type CKD 4 HTN GERD Gout Morbid obesity BPH Patient with mildly labored respirations at rest on room air, gets very dyspneic just walking few feet, takes over 2 minutes to recover Initially placed on a heparin drip on admission Transition to Eliquis, no nausea/vomiting, no diarrhea. Should tolerate p.o. just fine Echocardiogram ordered, assess for RV strain, assess for CHF/function Some rales, mild wheeze, nebs ordered, IV Lasix Renal function appears close to baseline, nephrology consulted Confirm home medications, restart as appropriate VTE: eliquis Code:full Dispo; home, ~1-2 days Time Spent Managing Pts Care (In Minutes): 35
[2022-06-30] MEDS: DOXAZOSIN 2 MG TAB PO SCH (20:44)
[2022-06-30] MEDS: BISOPROLOL FUMARATE 5 MG TABLET PO SCH (20:45)
[2022-07-01] MEDS: IPRATROPIUM BROM 0.5MG/2.5ML NEB SCH ×4 (01:35→20:00)
[2022-07-01 04:54] LABS: Hematocrit 34.8 % (39.6-49.0); MCV 88.2 fL (80-100); MPV 8.9 fL (7.6-11.3); RBC Red Blood Cell Count 3.94 M/uL (4.33-5.43)
[2022-07-01 05:08] LABS: Magnesium 2.1 mg/dL (1.8-2.4); Potassium 4.2 mmol/L (3.5-5.1)
--- NOTE | 2022-07-01 06:21 | P.PN ---
Date of Service: 07/01/22 Subjective: slight improvement in respirations; still remains with significant dyspnea on room air ROS: 10 point ROS as noted above, otherwise negative Physical exam GEN: Alert, oriented HEENT: Normal conjunctiva, sclera anicteric CV: Regular rate and rhythm, 1+ b/l lower extremity edema to ankles Pulm: Mildly labored respirations on room air, clear bilaterally ABD: Soft, nontender, nondistended Neuro: Normal speech, normal affect Problem List Acute hypoxic respiratory failure secondary to pulmonary embolism Acute on chronic CHF, HFpEF CKD 4 HTN GERD Gout Morbid obesity BPH Patient with mildly labored respirations at rest on room air, gets very dyspneic just walking few feet, takes over 2 minutes to recover Initially placed on a heparin drip on admission Transitioned to Eliquis Echo: EF ok, no RV strain improving slowly Renal function appears close to baseline, nephrology consulted dc IV lasix, restart home bumex continue home medications VTE: eliquis Code:full Dispo: SNF pt with significant dyspnea still, lives alone, mobility limited Time Spent Managing Pts Care (In Minutes): 35
[2022-07-01] MEDS ORDERED: SPIRONOLACTONE 25 MG TABLET PO SCH (09:00)
[2022-07-01] MEDS: ASPIRIN EC 81 MG TAB PO SCH (09:02)
[2022-07-01] MEDS: MULTIVITAMIN TAB PO SCH (09:02)
[2022-07-01] MEDS: APIXABAN 5 MG TABLET PO SCH ×2 (09:02→21:35)
[2022-07-01] MEDS: allopurinoL 300 MG TAB PO SCH (09:03)
[2022-07-01] MEDS: BISOPROLOL FUMARATE 5 MG TABLET PO SCH ×2 (09:03→21:36)
[2022-07-01] MEDS: BUMETANIDE 1 MG TABLET PO SCH ×2 (09:03→21:36)
--- NOTE | 2022-07-01 10:07 | ECHO ---
HEIGHT: 5 ft 11 in WEIGHT: 300 lb 0 oz DATE OF STUDY: 07/01/[address]: Jay Richardson 2-DIMENSIONAL: YES M.MODE: YES DOPPLER: YES COLOR FLOW: YES TDS: NO PORTABLE: YES DEFINITY: NO BUBBLE STUDY: NO DIAGNOSIS: PE, CONGESTIVE HEART FAILURE CARDIAC HISTORY: CATHERIZATION: NO SURGERY: NO PROSTHETIC VALVE: NO PACEMAKER: NO MEASUREMENTS (cm) DIASTOLIC (NORMALS) SYSTOLIC (NORMALS) IVSd 1.2 (0.6-1.2) LA Diam 3.4 (1.9-4.0) LVEF 56% LVIDd 3.9 (3.5-5.7) LVIDs 2.8 (2.0-3.5) %FS 29% LVPWd 1.3 (0.6-1.2) Ao Diam 3.2 (2.0-3.7) 2 DIMENSIONAL ASSESSMENT: RIGHT ATRIUM: NORMAL LEFT ATRIUM: NORMAL RIGHT VENTRICLE: NORMAL LEFT VENTRICLE: NORMAL TRICUSPID VALVE: NORMAL MITRAL VALVE: NORMAL PULMONIC VALVE: NORMAL AORTIC VALVE: NORMAL PERICARDIAL EFFUSION: NONE AORTIC ROOT: NORMAL LEFT VENTRICULAR WALL MOTION: NORMAL DOPPLER/COLOR FLOW: NORMAL COMMENTS: NORMAL LEFT VENTRICULAR SIZE AND FUNCTION. NO MITRAL VALVE PROLAPSE. NORMAL RIGHT VENTRICULAR SYSTOLIC PRESSURE. NO EFFUSION. TECHNOLOGIST: Perla MARTINEZ
[2022-07-01] MEDS ORDERED: ALBUTEROL 2.5 MG/3 ML NEB SOL NEB PRN (15:00)
--- NOTE | 2022-07-01 17:11 | P.PN ---
Date of Service: 07/01/22 Nephrology note: (S) Pt seen sitting in the recliner chair, reports BOLTON improved but still present, interested in going to swing bed to further recuperate. (O) Vitals reviewed in EMR General: Alert, In no apparent distress, Oriented x3 HEENT: Atraumatic, EOMI Neck: Supple Respiratory: Normal air movement, Other (Non tachypnec, no rhonchi) Cardiovascular: Normal pulses, Regular rate/rhythm, Normal S1 S2 (1+ distal LE edema b/l) Gastrointestinal: Soft and benign (Obese), No tenderness Musculoskeletal: No contractures, Clubbing Integumentary: No rashes, No breakdown Neurological: Normal speech, Normal affect Laboratory Data (last 24 hrs) Reviewed in EMR Conclusions/Impression: 1. Abnormal results of kidney function studies 2. 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 Acute Rt sided PE, based on V/Q scan 4. Chronic diastolic CHF per reports 5. Peripheral edema, other 6. Obesity -Pt's renal function tests show Cr level has risen slightly, cont to monitor closely. -Echo did not show signs of elevated filling pressures or pulm HTN, may scale back on loop diuretic doses if pre-renal signs emerge. -Will cont Bumex but did replace Amiloride with Spironolactone if pt has HFpEF/diastolic CHF given benefits of latter specifically in improving left ventricular diastolic function in studies. Will lower dose however to 12.5 mg qd as eGFR lower currently. -Trend BP closely, given some relatively lower readings at times, recommend holding ARB for now and lowering Losartan to 50 mg qd when resumed and applying a holding parameter to hold if SBP < 110 mmHg. -Ok to cont Allopurinol at current dose for now. -Cont f/u with Dr. Vazquez upon discharge. Luis Miguel Rodriguez MD, [facility]
[2022-07-01] MEDS: guaiFENesin 100 MG/5 ML UCUP PO PRN (21:40)
[2022-07-02] MEDS: IPRATROPIUM BROM 0.5MG/2.5ML NEB SCH ×4 (01:25→19:15)
--- NOTE | 2022-07-02 06:21 | P.PN ---
Date of Service: 07/02/22 Subjective: improving slowly Continues with moderatesignificant dyspnea on exertion Nonproductive/dry cough ROS: 10 point ROS as noted above, otherwise negative Physical exam GEN: Alert, oriented HEENT: Normal conjunctiva, sclera anicteric CV: Regular rate and rhythm, trace + b/l lower extremity edema to ankles Pulm: Mild labored respirations on room air ABD: Soft, nontender, nondistended Neuro: Normal speech, normal affect Problem List Acute hypoxic respiratory failure secondary to pulmonary embolism Acute on chronic CHF, HFpEF CKD 4 HTN GERD Gout Morbid obesity BPH Patient with mildly labored respirations at rest on room air, but gets very dyspneic just walking few feet, takes over 2 minutes to recover Initially placed on a heparin drip on admission Transitioned to Eliquis Echo: no RV strain, normal EF improving slowly Renal function appears close to baseline, nephrology consulted dc IV lasix, restart home bumex on 07/01 Renal function stable continue home medications VTE: eliquis Code:full Dispo: SNF - awaiting approval/acceptance pt with significant dyspnea still, lives alone, mobility limited Time Spent Managing Pts Care (In Minutes): 35
[2022-07-02 06:32] LABS: Hematocrit 34.3 % (39.6-49.0); Lymphocytes % 19.4 % (15.3-44.8); MCV 89.8 fL (80-100); MPV 8.4 fL (7.6-11.3); RBC Red Blood Cell Count 3.82 M/uL (4.33-5.43)
[2022-07-02 07:17] LABS: Magnesium 1.8 mg/dL (1.8-2.4); Potassium 4.4 mmol/L (3.5-5.1)
[2022-07-02] MEDS ORDERED: MAGNESIUM SULFATE 1 gm IVPB 1 GM/100 ML BAG IV ONE (08:00)
[2022-07-02] MEDS: BUMETANIDE 1 MG TABLET PO SCH ×2 (09:01→21:04)
[2022-07-02] MEDS: APIXABAN 5 MG TABLET PO SCH ×2 (09:01→21:05)
[2022-07-02] MEDS: ASPIRIN EC 81 MG TAB PO SCH (09:02)
[2022-07-02] MEDS: allopurinoL 300 MG TAB PO SCH (09:02)
[2022-07-02] MEDS: SPIRONOLACTONE 25 MG TABLET PO SCH (09:02)
[2022-07-02] MEDS: BISOPROLOL FUMARATE 5 MG TABLET PO SCH ×2 (09:03→21:05)
[2022-07-02] MEDS: guaiFENesin 100 MG/5 ML UCUP PO PRN ×2 (09:05→21:05)
[2022-07-02] MEDS: MULTIVITAMIN TAB PO SCH (12:00)
--- NOTE | 2022-07-02 20:15 | PN ---
Date of Progress Note: 07/02/2022 Subjective: The patient is alert, awake and comfortable. States he is breathing somewhat better but still gets short of breath with any movement or activity and his breathing rate goes up. He states that he came in for shortness of breath. He feels like he needs rehabilitation and is hoping that he can get into a swing bed at [facility] so that he can continue to do his rehabilitation and ge t stronger before he returns back home. He is currently looking comfortable. Objective: Vital Signs: His blood pressure is 118/63, pulse is 70 and regular, respirations are figueroa und 14-16 on my exam. Her temperature was afebrile. The patient's O2 sats were in the high 90s at a bout 94% to 96% a range on room air. Lungs: Clear anteriorly with decreased breath sounds at the ba ses. Abdomen: Soft. Extremities: Do reveal edema. The patient is obese. Laboratory Data: Reviewed. Labs show WBC of 5.4, hemoglobin 11, hematocrit 34.3, platelet count at 181. Chemistries show sodium 137, potassium 4.4, chloride 103; bicarb is 26, BUN is 59, creatinine i s 2.94, relatively stable compared to BUN and creatinine yesterday at about 53 and 2.99. Magnesium l evel is 1.8. ProBNP level done on June 30 was 3971. TSH done on June 29 was 0.792. Medications: Reviewed. The patient is on inhalers with albuterol. He is getting Tylenol p.r.n. He is on allopurinol. He is on Eliquis. He is on aspirin. He is on Bumex. He is on ipratropium and labetalol p.r.n. He is on Zofran p.r.n. and he is on spironolactone 12.5 mg daily. Assessment And Plan: 1.The patient with chronic kidney disease, question stage IV with hypertensive nephrosclerosis. 2.Acute on chronic kidney disease, relatively stable. 3.Pulmonary embolism, on anticoagulation with Eliquis. 4.Congestive heart failure, reasonably stable at this point, currently on Bumex. 5.Peripheral edema, reasonably stabilizing. 6.Deconditioned frail patient is still a fall risk. He has difficulty breathing with minimal exerti on. The patient will benefit from rehabilitation. He is awaiting placement for swing bed. Lab work ordered for Monday and continue to evaluate renal function while in hospital and on diuresis. May n eed diuresis to be gently slowed, but currently his BUN, creatinine is raised reasonably stable and h e still seems to be slightly on the volume overload side. We will continue Bumex at current dose and spironolactone at current dose. Blood pressure seems reasonable. /PAOLA Voice ID: [id number] Report ID: [id number]
[2022-07-03] MEDS: IPRATROPIUM BROM 0.5MG/2.5ML NEB SCH ×4 (01:10→19:50)
[2022-07-03] MEDS: SENOSIDES 8.6 MG TAB PO PRN ×2 (02:30→17:03)
[2022-07-03] MEDS: guaiFENesin 100 MG/5 ML UCUP PO PRN ×2 (02:30→17:04)
--- NOTE | 2022-07-03 05:56 | P.PN ---
Date of Service: 07/03/22 Subjective: improving walked > 100ft yesterday on room air with PT ROS: 10 point ROS as noted above, otherwise negative Physical exam GEN: Alert, oriented HEENT: Normal conjunctiva, sclera anicteric CV: Regular rate and rhythm, trace + b/l lower extremity edema to ankles Pulm: nonlabored respirations on room air, clear to auscultation ABD: Soft, nontender, nondistended Neuro: Normal speech, normal affect Problem List Acute hypoxic respiratory failure secondary to pulmonary embolism Acute on chronic CHF, HFpEF CKD 4 HTN GERD Gout Morbid obesity BPH Patient had mildly labored respirations at rest on room air, but gets very dyspneic just walking few feet, takes over 2 minutes to recover Initially placed on a heparin drip on admission Transitioned to Eliquis Echo: no RV strain, normal EF improving slowly, ambulated >100ft on 07/02 patient still feels very dyspneic with some limited mobility, lives alone; does not feel safe discharging home in this condition Renal function appears close to baseline, nephrology consulted dc'd IV lasix, restart home bumex on 07/01 Renal function stable continue home medications VTE: eliquis Code:full Dispo: SNF - awaiting approval/acceptance pt with significant dyspnea still, lives alone, mobility limited Time Spent Managing Pts Care (In Minutes): 35
[2022-07-03 06:56] LABS: Potassium 4.3 mmol/L (3.5-5.1)
[2022-07-03] MEDS: MULTIVITAMIN TAB PO SCH (10:47)
[2022-07-03] MEDS: allopurinoL 300 MG TAB PO SCH (10:47)
[2022-07-03] MEDS: BUMETANIDE 1 MG TABLET PO SCH ×2 (10:47→21:48)
[2022-07-03] MEDS: APIXABAN 5 MG TABLET PO SCH ×2 (10:47→21:49)
[2022-07-03] MEDS: ASPIRIN EC 81 MG TAB PO SCH (10:47)
[2022-07-03] MEDS: SPIRONOLACTONE 25 MG TABLET PO SCH (10:48)
[2022-07-03] MEDS: BISOPROLOL FUMARATE 5 MG TABLET PO SCH ×2 (10:52→21:49)
[2022-07-04] MEDS: IPRATROPIUM BROM 0.5MG/2.5ML NEB SCH ×3 (01:15→13:54)
--- NOTE | 2022-07-04 06:37 | P.PN ---
Date of Service: 07/04/22 Subjective: ROS: 10 point ROS as noted above, otherwise negative Physical exam GEN: Alert, oriented HEENT: Normal conjunctiva, sclera anicteric CV: Regular rate and rhythm, trace + b/l lower extremity edema to ankles Pulm: nonlabored respirations on room air, clear to auscultation ABD: Soft, nontender, nondistended Neuro: Normal speech, normal affect Problem List Acute hypoxic respiratory failure secondary to pulmonary embolism Acute on chronic CHF, HFpEF CKD 4 HTN GERD Gout Morbid obesity BPH Patient had mildly labored respirations at rest on room air, but gets very dyspneic just walking few feet, takes over 2 minutes to recover Initially placed on a heparin drip on admission Transitioned to Eliquis Echo: no RV strain, normal EF improving slowly, ambulated >100ft on 07/02 patient still feels very dyspneic with some limited mobility, lives alone; does not feel safe discharging home in this condition Renal function appears close to baseline, nephrology consulted dc'd IV lasix, restart home bumex on 07/01 Renal function stable continue home medications VTE: eliquis Code:full Dispo: SNF - awaiting approval/acceptance pt with significant dyspnea still, lives alone, mobility limited Time Spent Managing Pts Care (In Minutes): 35
[2022-07-04 07:24] LABS: Potassium 4.3 mmol/L (3.5-5.1)
[2022-07-04] MEDS: SPIRONOLACTONE 25 MG TABLET PO SCH (09:15)
[2022-07-04] MEDS: MULTIVITAMIN TAB PO SCH (09:15)
[2022-07-04] MEDS: BUMETANIDE 1 MG TABLET PO SCH (09:15)
[2022-07-04] MEDS: allopurinoL 300 MG TAB PO SCH (09:15)
[2022-07-04] MEDS: ASPIRIN EC 81 MG TAB PO SCH (09:16)
[2022-07-04] MEDS: APIXABAN 5 MG TABLET PO SCH (09:16)
[2022-07-04] MEDS: BISOPROLOL FUMARATE 5 MG TABLET PO SCH (09:22)
[2022-07-04 13:55] VITALS: O2SAT 98
[2022-07-04 16:11] VITALS: BP 128/59; TEMP 97.5
--- NOTE | 2022-07-04 20:32 | P.PN ---
Date of Service: 07/04/22 Vital Signs Temp Pulse Resp BP Pulse Ox 97.5 F 79 18 128/59 L 96 07/04/22 16:00 07/04/22 16:00 07/04/22 16:00 07/04/22 16:00 07/04/22 16:00 Assessment/ Plan: Nephrology No dyspnea at rest. BOLTON. No chest pain No acute events overnight Vitals, medications, blood work and imaging reviewed in the chart. NAD. Obese. NCAT. MMM. Neck supple. Normal respiratory effort. RRR. Abd ND. No C/C. LE Edema 1+. No rash. AAO. Normal speech. CKD IV -No NSAIDs Diastolic CHF, chronic -Low sodium diet -Continue Bumex Acute PE -Continue Eliquis Anemia in chronic illness -Monitor H&H -Consider Retacrit Case reviewed with Dr. Cuellar
[2022-07-07] MEDS ORDERED: APIXABAN 5 MG TABLET PO SCH (09:00)
--- NOTE | 2022-07-11 18:53 | P.DS ---
Admission Date: 06/29/22 Discharge Date: 07/04/22 Disposition: ROUTINE DISCHARGE Reason for Admission: Shortness of breath Consultations: Renal - Dr. Vazquez Brief History of Present Illness: 87-year-old male with a past medical history significant for GERD, hypertension, CKD, BPH, CHF, morbid obesity who presents with complaint of shortness of breath. Patient reported that he tested positive for COVID-19 infection on June 03 and has been short of breath since then. Patient indicated that he tested negative for COVID-19 infection 5 days ago. Patient reported associated signs and symptoms of cough and chest congestion. Patient denies any other signs and symptoms. Symptoms are aggravated with exertion and relieved by nothing. Patient decided to present to the hospital due to worsening symptoms. Hospital Course: Problem List Acute hypoxic respiratory failure secondary to pulmonary embolism Acute on chronic CHF, HFpEF CKD 4 HTN GERD Gout Morbid obesity BPH Patient presented with shortness of breath. Found to have PEs and mild acute CHF exacerbation. He received heparin drip overnight and transitioned to Eliquis. He will continue 10mg BID eliquis until 07/07 - start 5mg BID. He did not require oxygen supplementation since hospital day 2 Follow up with PCP within 1 week of discharge. Follow up with Dr. Garvin (Pulmonology) ~1-2 weeks after discharge. Patient was very dyspneic on exertion and improved daily. On the last 2 days of discharge, patient was ambulating ~80-100ft before having to rest. He lives alone and was very concerned about managing everything on his own. He is discharged to [facility] to continue physical therapy. His renal function was stable. Nephrology (Dr. Vazquez, Dr. Rodriguez, Dr. Alan) were consulted and made some adjustments to his diuretic regimen. Physical exam GEN: Alert, oriented HEENT: Normal conjunctiva, sclera anicteric CV: Regular rate and rhythm, trace + b/l lower extremity edema to ankles Pulm: nonlabored respirations on room air, clear to auscultation ABD: Soft, nontender, nondistended Neuro: Normal speech, normal affect Vital Signs/Physical Exam: Temp Pulse Resp BP Pulse Ox 97.5 F 79 18 128/59 L 96 07/04/22 16:00 07/04/22 16:07/04/22 16:07/04/22 16:00 07/04/22 16:00 Laboratory Data at Discharge: WBC 5.40 K/uL (4.3-10.9) 07/02/22 06:02 Hgb 11.0 g/dL (13.6-17.9) L 07/02/22 06:02 Hct 34.3 % (39.6-49.0) L 07/02/22 06:02 Plt Count 181 K/uL (152-406) 07/02/22 06:02 PT 11.5 SECONDS (9.5-12.5) 06/29/22 15:56 INR 1.04 06/29/22 15:56 APTT 74.2 SECONDS (24.3-36.9) H 06/30/22 06:16 Sodium 136 mmol/L (136-145) 07/04/22 05:37 Potassium 4.3 mmol/L (3.5-5.1) 07/04/22 05:37 BUN 81 mg/dL (7-18) H 07/04/22 05:37 Creatinine 3.15 mg/dL (0.55-1.3) H 07/04/22 05:37 Glucose 121 mg/dL (74-106) H 07/04/22 05:37 Phosphorus 3.6 mg/dL (2.5-4.9) 06/30/22 02:21 Magnesium 2.0 mg/dL (1.8-2.4) 07/03/22 06:16 Home Medications: Allopurinol 1 tab PO DAILY 02/27/16 Bisoprolol Fumarate [Zebeta] 5 mg PO DAILY 02/27/16 Bumetanide [Bumex*] 1 mg PO BID 02/27/16 Multivitamin [Daily Multiple Vitamin] 1 tab PO DAILY 02/27/16 Apixaban [Eliquis] 5 mg PO BID 07/04/22 Apixaban [Eliquis] 10 mg PO BID 07/04/22 Senosides [Senokot*] 17.2 mg PO DAILY PRN tab 07/04/22 Spironolactone [Aldactone*] 12.5 mg PO DAILY tab 07/04/22 Physician Discharge Instructions: Patient presented with shortness of breath. Found to have PEs and mild acute CHF exacerbation. He received heparin drip overnight and transitioned to Eliquis. He will continue 10mg BID eliquis until 07/07 - start 5mg BID. He did not require oxygen supplementation since hospital day 2 Follow up with PCP within 1 week of discharge. Follow up with Dr. Garvin (Pulmonology) ~1-2 weeks after discharge. Patient was very dyspneic on exertion and improved daily. On the last 2 days of discharge, patient was ambulating ~80-100ft before having to rest. He lives alone and was very concerned about managing everything on his own. He is discharged to [facility] bed to continue physical therapy. His renal function was stable. Nephrology (Dr. Vazquez, Dr. Rodriguez, Dr. Alan) were consulted and made some adjustments to his diuretic regimen. Followup: William Sweet MD [Primary Care Provider] - Time spent managing pt's care (in minutes): 40
== END 2022-07-04 16:30 | DRG 175 ==
LOC: ER 11:16 → ERHOLD 16:55 → 4TH 20:22 → 2ND 06-30 16:49
PROVIDERS: ADMIT Hospitalist; ATTEND Hospitalist
DX: I26.99 Other pulmonary embolism without acute cor pulmonale (principal); I50.33 Acute on chronic diastolic (congestive) heart failure; J96.01 Acute respiratory failure with hypoxia; N18.4 Chronic kidney disease, stage 4 (severe); I13.0 Hypertensive heart and chronic kidney disease with heart failure and stage 1 through stage 4 chronic kidney disease, or unspecified chronic kidney disease; Z68.41 Body mass index [BMI] 40.0-44.9, adult; E66.01 Morbid (severe) obesity due to excess calories; M10.9 Gout, unspecified; K21.9 Gastro-esophageal reflux disease without esophagitis; N40.0 Benign prostatic hyperplasia without lower urinary tract symptoms; G47.30 Sleep apnea, unspecified; Z86.16 Personal history of COVID-19; Z79.52 Long term (current) use of systemic steroids; Z91.048 Other nonmedicinal substance allergy status; Z79.899 Other long term (current) drug therapy; Z20.822 Contact with and (suspected) exposure to COVID-19
CPT/HCPCS: 36415; 71045; 78582; 80048; 81001; 83735; 83880; 84100; 84439; 84443; 84484; 85025; 85027; 85379; 85610; 85730; 87811; 93005; 93306; 94640; 96365; 96366; 97110; 97116; 97161; 99285; A9540; A9558; J1644; J1940; J3475; J7512

== ENCOUNTER 2024-04-16 19:17 | Emergency (ER) | payer OTHER, BC ==
[2024-04-16 21:12] LABS: Absolute Eosinophils 0.3 K/uL (0-0.5); Absolute Monocytes 0.4 K/uL (0.1-1.3); Absolute Neutrophil 2.9 K/uL (1.8-8.0); Basophils % 0.5 % (0-1.3); Eosinophils % 6.6 % (0-4.4); Hematocrit 36.3 % (39.6-49.0); Hemoglobin 11.6 g/dL (13.6-17.9); Lymphocytes % 22.2 % (15.3-44.8); MCH 27.9 pg (27.0-35.0); MCHC 31.9 g/dL (32.0-36.0); MCV 87.3 fL (80-100); MPV 8.6 fL (7.6-11.3); Monocytes % 8.6 % (3.3-12.3); Neutrophils % 62.1 % (41.7-73.7); Nucleated Red Blood Cells % 0.1 % (0-0); Platelets 165 thou/uL (152-406); RBC Red Blood Cell Count 4.16 M/uL (4.33-5.43); Red Cell Distribution Width 16.3 % (12.1-15.2)
[2024-04-16 21:17] LABS: ALT/SGPT 18 U/L (16-61); Albumin/Globulin Ratio 0.8 (1.1-1.8); Alkaline Phosphatase 54 U/L (45-117); Anion Gap 10.9 mEq/L (5.0-15.0); BUN Blood Urea Nitrogen 61 mg/dL (7-18); Bicarbonate 27 mEq/L (21-32); Bilirubin Total 0.3 mg/dL (0.2-1.0); Globulin 3.6 g/dL (2.3-3.5); Glomerular Filtration Rate 19 ml/min (=/>90); Glucose Level 103 mg/dL (74-106); NT PRO-BNP 146 pg/mL (<450); Protein, Total 6.6 g/dL (6.4-8.2); Sodium Level 140 mEq/L (136-145); Troponin High Sensitivity 15.8 pg/mL (<58.9)
[2024-04-16 21:18] LABS: AST/SGOT 21 U/L (15-37); Bilirubin Direct < 0.2 mg/dL (0-0.2); Bilirubin Indirect, Calculated 0.1 mg/dL (0.2-0.8); Magnesium 1.8 mg/dL (1.6-2.4); Potassium 3.9 mEq/L (3.5-5.1)
[2024-04-16 21:25] LABS: PT Prothrombin Time 12.6 SECONDS (9.5-12.5); PTT, Activated Partial Thromb 30.7 SECONDS (24.3-36.9); Protime INR 1.15
--- NOTE | 2024-04-16 21:32 | RAD REPORT ---
EXAM DESCRIPTION: Joon Single View04/16/2024 9:16 pm CLINICAL HISTORY: Shortness of breath COMPARISON: 2021 FINDINGS: Calcified lung granulomas. The lungs appear clear of acute infiltrate. The heart is mildly enlarged IMPRESSION: No acute abnormalities displayed
[2024-04-16 22:42] LABS: Specific Gravity 1.015 (1.005-1.030); Urine Bilirubin NEGATIVE (Negative); Urine Blood Negative (Negative); Urine Clarity Clear (Clear); Urine Color Light-Yellow (Yellow); Urine Glucose NEGATIVE (Negative); Urine Ketones NEGATIVE (Negative); Urine Microscopic Reflex YN NO UMIC; Urine Nitrite NEGATIVE (Negative); Urine Protein NEGATIVE (Negative); Urine Urobilinogen Normal (Normal); Urine pH 5.5 (5.0-7.0)
--- NOTE | 2024-04-16 22:44 | ER ---
Nurse's Notes [facility] Name: Remigio Akins Age: 89 yrs Sex: Male : 1935 Arrival Date: 04/16/2024 Time: 19:17 Bed 13 Private MD: Diagnosis: Dizziness and giddiness Presentation: 04/16 19:20 Chief complaint: Patient states: "I was sitting in my recliner and got really dizzy and mb9 SOB. I decided to check my oxygen and it said 79% on RA. I feel ok right now.". Coronavirus screen: Vaccine status: Patient reports receiving the 2nd dose of the covid vaccine. Ebola Screen: No symptoms or risks identified at this time. Initial Sepsis Screen: Does the patient meet any 2 criteria? No. Patient's initial sepsis screen is negative. Does the patient have a suspected source of infection? No. Patient's initial sepsis screen is negative. Risk Assessment: Do you want to hurt yourself or someone else? Patient reports no desire to harm self or others. Onset of symptoms was April 16, 2024. 19:20 Method Of Arrival: Wheelchair mb9 19:20 Acuity: RUDDY 3 mb9 Triage Assessment: 19:22 General: Appears in no apparent distress. Behavior is calm, cooperative. Pain: Denies mb9 pain. EENT: No signs and/or symptoms were reported regarding the EENT system. Neuro: Almazan Agitation-Sedation Scale (RASS): 0 - Alert and Calm Level of Consciousness is awake, alert, obeys commands, Oriented to person, place, time, situation, Appropriate for age Reports dizziness. Cardiovascular: Patient's skin is warm and dry. Respiratory: Reports shortness of breath Airway is patent Respiratory effort is even, unlabored, Respiratory pattern is regular, symmetrical. GI: No signs and/or symptoms were reported involving the gastrointestinal system. : No signs and/or symptoms were reported regarding the genitourinary system. Derm: Skin is pink, warm \\T\\ dry. Musculoskeletal: Range of motion: intact in all extremities. Historical: - Allergies: 19:22 Iodine; mb9 - PMHx: 19:22 Gout; Hypertension; kidney problems; PE; Sleep Apnea; mb9 - PSHx: 19:22 None; mb9 - Immunization history:: Adult Immunizations up to date. - Infectious Disease History:: Denies. - Social history:: Smoking status: Patient denies any tobacco usage or history of. Screenin:33 [facility] ED Fall Risk Assessment (Adult) History of falling in the last 3 months, tm6 including since admission No falls in past 3 months (0 pts) Confusion or Disorientation No (0 pts) Intoxicated or Sedated No (0 pts) Impaired Gait No (0 pts) Mobility Assist Device Used Yes (1 pt) Altered Elimination No (0 pt) Score/Fall Risk Level 0 - 2 = Low Risk Oriented to surroundings, Maintained a safe environment, Educated pt \\T\\ family on fall prevention, incl call for assistance when getting out of bed. Abuse screen: Denies threats or abuse. Denies injuries from another. Nutritional screening: No deficits noted. Tuberculosis screening: No symptoms or risk factors identified. Assessment: 19:33 General: Appears in no apparent distress. Behavior is calm, cooperative. Pain: Denies tm6 pain. Neuro: Level of Consciousness is awake, alert, obeys commands, Oriented to person, place, time, situation. Cardiovascular: No deficits noted. Patient's skin is warm and dry. Respiratory: Airway is patent Respiratory effort is labored, Respiratory pattern is symmetrical, Breath sounds with wheezes bilaterally. Onset: The symptoms/episode began/occurred today. GI: Abdomen is round non-distended. GI: No signs and/or symptoms were reported involving the gastrointestinal system. : No signs and/or symptoms were reported regarding the genitourinary system. EENT: No signs and/or symptoms were reported regarding the EENT system. Derm: No signs and/or symptoms reported regarding the dermatologic system. Musculoskeletal: No signs and/or symptoms reported regarding the musculoskeletal system. 20:50 Reassessment: Patient appears in no apparent distress at this time. tm6 22:15 Reassessment: Patient and/or family updated on plan of care and expected duration. Pain tm6 level reassessed. Patient is alert, oriented x 3, equal unlabored respirations, skin warm/dry/pink. Vital Signs: 19:20 BP 167 / 86; Pulse 89; Resp 18; Temp 98.5; Pulse Ox 98% on R/A; Weight 133.36 kg; mb9 Height 5 ft. 10 in. ; Pain 0/10; 20:49 Pulse 84; Resp 16; Pulse Ox 99% on R/A; tm6 22:15 BP 154 / 70; Pulse 72; Pulse Ox 97% on R/A; Pain 0/10; tm6 22:56 BP 168 / 62; Pulse 76; Resp 18; Temp 96.7(TE); Pulse Ox 98% on R/A; Pain 0/10; tm6 19:20 Body Mass Index 42.19 (133.36 kg, 177.8 cm) mb9 19:20 Pain Scale: Adult mb9 22:15 Pain Scale: Adult tm6 22:56 Pain Scale: Adult tm6 ED Course: 19:19 Patient arrived in ED. mr 19:21 Triage completed. mb9 19:22 Arm band placed on. mb9 19:27 Isac Stratton, RN is Primary Nurse. tm6 19:33 Patient has correct armband on for positive identification. Placed in gown. Bed in low tm6 position. Call light in reach. Side rails up X 1. Provided Education on: use of call vidal. Client placed on continuous cardiac and pulse oximetry monitoring. NIBP monitoring applied. Pulse ox on. NIBP on. Door closed. Noise minimized. 19:33 No provider procedures requiring assistance completed. tm6 19:34 [facility]-C [facility]. kb 19:34 Uriel Perry MD is Attending Physician. kb 20:23 EKG done, by ED staff, reviewed by Amanda MAXWELL. tm6 21:01 Inserted saline lock: 20 gauge in right antecubital area, using aseptic technique. mb9 Blood collected. 21:18 Chest Single View XRAY In Process Unspecified. EDMS 22:56 IV discontinued, intact, bleeding controlled, No redness/swelling at site. Pressure tm6 dressing applied. Administered Medications: No medications were administered Medication: 19:33 VIS not applicable for this client. tm6 Outcome: 22:44 Discharge ordered by . kb 22:56 Discharged to home via wheelchair, with family, tm6 22:56 Condition: stable 22:56 Discharge instructions given to patient, family, Instructed on discharge instructions, follow up and referral plans. Demonstrated understanding of instructions, follow-up care, 22:57 Patient left the ED. tm6 Signatures: Dispatcher [employer] EDMS Amanda Baxter FNP-C FNP-CkCandi Foster, Reg Reg mr Collins, Candi Palafox, RN RN mb9 Isac Stratton RN RN tm6 Corrections: (The following items were deleted from the chart) 19:22 19:20 Pulse 89bpm; Resp 18bpm; Pulse Ox 98% RA; Temp 98.5F; 133.36 kg; Height 5 ft. 10 mb9 in.; BMI: 42.1; Pain 0/10, Adult; mb9
--- NOTE | 2024-04-16 22:44 | EDPHYS ---
Physician Documentation [facility] Name: Remigio Akins Age: 89 yrs Sex: Male : 1935 Arrival Date: 04/16/2024 Time: 19:17 Bed 13 Private MD: ED Physician Uriel Perry HPI: 04/16 23:53 This 89 yrs old Black Male presents to ER via Wheelchair with complaints of Low O2. 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 States he was sitting in his recliner and felt dizzy/lightheaded so he checked his oxygen level and it was 78%. States his heart rate was 97. States it only lasted a short time and has now resolved. . Historical: - Allergies: 19:22 Iodine; mb9 - PMHx: 19:22 Gout; Hypertension; kidney problems; PE; Sleep Apnea; mb9 - PSHx: 19:22 None; mb9 - Immunization history:: Adult Immunizations up to date. - Infectious Disease History:: Denies. - Social history:: Smoking status: Patient denies any tobacco usage or history of. ROS: 23:51 Constitutional: As per HPI kb Exam: 23:51 Constitutional: This is a well developed, well nourished patient who is awake, alert, kb and in no acute distress. Head/Face: Normocephalic, atraumatic. ENT: Moist Mucous membranes Cardiovascular: Regular rate Respiratory: Respirations even and unlabored. No increased work of breathing. Talking in full sentences Abdomen/GI: Soft, non-tender. No distention Skin: Warm, dry with normal turgor. Normal color. MS/ Extremity: Pulses equal, no cyanosis. Neurovascular intact. Full, normal range of motion. Neuro: Awake and alert, GCS 15, oriented to person, place, time, and situation. Moves all extremities. Normal gait. 23:51 ECG was reviewed by the Attending Physician. Vital Signs: 19:20 BP 167 / 86; Pulse 89; Resp 18; Temp 98.5; Pulse Ox 98% on R/A; Weight 133.36 kg; mb9 Height 5 ft. 10 in. ; Pain 0/10; 20:49 Pulse 84; Resp 16; Pulse Ox 99% on R/A; tm6 22:15 BP 154 / 70; Pulse 72; Pulse Ox 97% on R/A; Pain 0/10; tm6 22:56 BP 168 / 62; Pulse 76; Resp 18; Temp 96.7(TE); Pulse Ox 98% on R/A; Pain 0/10; tm6 19:20 Body Mass Index 42.19 (133.36 kg, 177.8 cm) mb9 19:20 Pain Scale: Adult mb9 22:15 Pain Scale: Adult tm6 22:56 Pain Scale: Adult tm6 MDM: 19:34 Patient medically screened. kb 23:51 Differential diagnosis: CHF exacerbation, pneumonia, hypoxia, abnormal ekg, abnormal kb electrolytes. Data reviewed: vital signs, nurses notes. Consideration of Admission/Observation Escalation of care including admission/observation considered. admission considered, but pt has been symptom free since arrival, oxygen saturation has maintained between 97-99% on room air. Pt is awake, alert and oriented. Lungs clear bilaterally, resp even and unlabored. . Management of patient was discussed with the following: Hospitalist: Dr Mora . Counseling: I had a detailed discussion with the patient and/or guardian regarding the historical points, exam findings, and any diagnostic results supporting the discharge/admit diagnosis, lab results, radiology results, the need for outpatient follow up, a family practitioner, to return to the emergency department if symptoms worsen or persist or if there are any questions or concerns that arise at home. 23:54 ED course: pt's heart rate maintained in the high 70s and oxygen in high 90s. I asked kb pt if he could have mixed up the numbers on the pulse ox when he checked it. Pt states he doesn't think so but it is possible. 04/16 20:07 Order name: Basic Metabolic Panel; Complete Time: 21:20 kb 04/16 20:07 Order name: CBC with Diff; Complete Time: 21:32 kb 04/16 20:07 Order name: Hepatic Function; Complete Time: 21:20 kb 04/16 20:07 Order name: Magnesium; Complete Time: 21:20 kb 04/16 20:07 Order name: Protime (+inr); Complete Time: 21:32 kb 04/16 20:07 Order name: Ptt, Activated; Complete Time: 21:32 kb 04/16 20:07 Order name: Troponin High Sensitivity; Complete Time: 21:20 kb 04/16 20:07 Order name: Urinalysis w/ reflexes; Complete Time: 22:44 kb 04/16 20:07 Order name: BNP; Complete Time: 21:20 kb 04/16 20:07 Order name: Chest Single View XRAY; Complete Time: 21:33 kb 04/16 20:07 Order name: EKG; Complete Time: 20:08 kb 04/16 20:07 Order name: Cardiac monitoring; Complete Time: 20:23 kb 04/16 20:07 Order name: EKG - Nurse/Tech; Complete Time: 20:23 kb 04/16 20:07 Order name: IV Saline Lock; Complete Time: 21:03 kb 04/16 20:07 Order name: Labs collected and sent; Complete Time: 21:03 kb 04/16 20:07 Order name: NPO; Complete Time: 20:14 kb 04/16 20:07 Order name: O2 Per Protocol; Complete Time: 20:14 kb 04/16 20:07 Order name: O2 Sat Monitoring; Complete Time: 20:14 kb EC:51 Rate is 80 beats/min. Rhythm is regular. QRS Fries is Normal. W[place] interval is normal at kb 172 msec. QRS interval is normal at 96 msec. QT interval is normal at 452 msec. Administered Medications: No medications were administered Disposition Summary: 04/16/24 22:44 Discharge Ordered Notes: Location: Home kb Condition: Stable kb Diagnosis - Dizziness and giddiness kb Followup: kb - With: Emergency Department - When: As needed - Reason: Worsening of condition Followup: kb - With: Private Physician - When: 2 - 3 days - Reason: Recheck today's complaints, Continuance of care, Re-evaluation by your physician Discharge Instructions: - Discharge Summary Sheet kb - Near-Syncope, [id number] kb - Dizziness, [id number] kb Forms: - Medication Reconciliation Form kb - Antibiotic Education kb - Prescription Opioid Use kb - Patient Portal Instructions kb - Leadership Thank You Letter kb Signatures: Dispatcher [employer] EDMS Amanda Baxter, MUSIC PROFESSOR-C MUSIC PROFESSOR-Candi Casanova RN RN mb9 Corrections: (The following items were deleted from the chart) 20:08 20:08 PROBNP+C.LAB.BRZ ordered. [facility] EDMS
[2024-04-16 23:53] VITALS: BP 168/62; TEMP 96.7; O2SAT 98
--- NOTE | 2024-04-17 16:33 | EKG ---
Test Date: 2024-04-16 Test Time: 20:19:50 Armament Installer: SARITHA MEASUREMENT RESULTS: Intervals: Rate: 80 HI: 172 QRSD: 96 QT: 392 QTc: 452 [place]: P: 67 HI: 172 QRS: -28 T: 67 INTERPRETIVE STATEMENTS: Normal sinus rhythm Normal ECG Compared to ECG 09/13/2022 18:11:31 Incomplete right bundle-branch block no longer present Prolonged QT interval no longer present Electronically Signed On 04-17-24 16:31:28 CDT by Ty Arzate
== END 2024-04-16 22:57 | disposition home or self-care (01) ==
LOC: ER 19:17
DX: R42 Dizziness and giddiness (principal)
CPT/HCPCS: 36415; 71045; 80048; 80076; 81003; 83735; 83880; 84484; 85025; 85610; 85730; 93005; 99284

== ENCOUNTER 2024-08-19 16:23 | Emergency (ER) | payer OTHER, BC ==
--- OUTSIDE RECORDS SUMMARY | 2024-08-19 16:27 | XMS REPORT | Continuity of Care Document ---
Author Name Unknown Address [address] [facility] [address] [place] [address] [facility] thconnect Address [address] [facility] [address] [place] [address] Care Team Providers Care Algebra Tutor Name Role Phone William Sweet MD Primary Care Physician + [phone] Arash Dillon MD Attending Clinician [phone] ARASH DILLON Attending Clinician Unavail able Payers Payer Name Policy Type Policy Number Effective Date Expirati on Date Source MEDICARE PART A AND B Medicare [id number] 2024 00:00:00 BCBS COMM [id number] 2001 00:00:00 Problems Condition Name Condition Details Condition Category Status Onset Date Resolution Date Last Treatment Date Treating Clinician Comments Source Peripheral neuropathy Peripheral neuropathy Disease Active 04-26 00:00: 00 Howard Rivas Paresthesi a Paresthesi a Disease Active 04-26 00:00: 00 Howard Rivas 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 Disease Active 04-26 00:00: 00 Howard Rivas Metabolic syndrome Metabolic syndrome Disease Active 03-26 00:00: 00 Howard Rivas Slow transit constipati on Slow transit constipati on Disease Active 04-02 00:00: 00 Howard Rivas Obstructiv e sleep apnea syndrome Obstructiv e sleep apnea syndrome Disease Active 07-21 00:00: 00 Howard Rivas Hypokalemi a Hypokalemi a Disease Recurre nce 2018-11 00:00: 00 Howard Rivas Hypertensi on Hypertensi on Disease Active 2018-11 00:00: 00 Howard Rivas Localized edema due to fluid overload Localized edema due to fluid overload Disease Active 2018-11 00:00: 00 Howard Rivas 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 Disease Active 2018-11 00:00: 00 Howard Rivas 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 Active 06-17 00:00: 00 Howard Rivas CRI (chronic renal insufficie ncy) CRI (chronic renal insufficie ncy) Disease Active 06-17 00:00: 00 Howard Rivas Degenerati on of lumbosacra l interverte bral disc Degenerati on of lumbosacra l interverte bral disc Disease Active 06-17 00:00: 00 Howard Rivas History of malignant neoplasm of prostate History of malignant neoplasm of prostate Disease Active 06-17 00:00: 00 Howard Rivas Morbid obesity Morbid obesity Disease Active 06-17 00:00: 00 Howard Rivas Hypomagnes emia Hypomagnes emia Disease Active 06-17 00:00: 00 Howard Rivas Vitamin D deficiency , unspecifie d Vitamin D deficiency , unspecifie d Disease Active 06-17 00:00: 00 Howard Rivas Diastolic heart failure Diastolic heart failure Disease Resolve d 04-26 00:00: 00 2024-04-26 00:00:00 2024-04-26 14:34:44 Howard Rivas Pulmonary embolism Pulmonary embolism Disease Resolve d 04-26 00:00: 00 2024-04-26 00:00:00 2024-04-26 14:34:44 Howard Rivas Pulmonary thromboemb olism (CMS/HCC) Pulmonary thromboemb olism (CMS/HCC) Disease Resolve d 04-26 00:00: 00 2024-04-26 00:00:00 2024-04-26 14:34:44 Howard Rivas Secondary hyperaldos teronism Secondary hyperaldos teronism Disease Resolve d 03-26 00:00: 00 2024-04-26 00:00:00 2024-04-26 14:34:44 Howard Rivas Nephrogeno us proteinuri a Nephrogeno us proteinuri a Disease Resolve d 805 00:00: 00 2024-04-26 00:00:00 2024-04-26 14:34:44 Howard Rivas Secondary hyperparat hyroidism Secondary hyperparat hyroidism Disease Resolve d 805 00:00: 00 2024-04-26 00:00:00 2024-04-26 14:34:44 Howard Rivas Anemia of chronic disease Anemia of chronic disease Disease Resolve d 805 00:00: 00 2024-04-26 00:00:00 2024-04-26 14:34:44 Howard Rivas Gastroesop hageal reflux disease Gastroesop hageal reflux disease Disease Resolve d 805 00:00: 00 2024-04-26 00:00:00 2024-04-26 14:34:44 Howard Rivas Lower urinary tract symptoms due to benign prostatic hyperplasi a Lower urinary tract symptoms due to benign prostatic hyperplasi a Disease Resolve d 805 00:00: 00 2024-04-26 00:00:00 2024-04-26 14:34:44 Howard Rivas Mixed hyperlipid emia Mixed hyperlipid emia Disease Resolve d 805 00:00: 00 2024-04-26 00:00:00 2024-04-26 14:34:44 Howard Rivas Hypernatre noé Hypernatre noé Disease Resolve d 805 00:00: 00 2024-04-26 00:00:00 2024-04-26 14:34:44 Howard Rivas Microscopi c hematuria Microscopi c hematuria Disease Resolve d 805 00:00: 00 2024-04-26 00:00:00 2024-04-26 14:34:44 Memoria l [facility] Pleuritic chest pain Pleuritic chest pain Disease Resolve d 4-18 00:00: 00 2024-04-26 00:00:00 2024-04-26 14:34:44 Memshadia Rivas Age-relate d cataract of left eye Age-relate d cataract of left eye Disease Resolve d 2014-11 0- 00:00: 00 2024-04-26 00:00:00 2024-04-26 14:34:44 Howard Rivas Impotence Impotence Disease Resolve d 17 00:00: 00 2024-04-26 00:00:00 2024-04-26 14:34:44 Howard Alvarado Epic Cataract Cataract Disease Resolve d 03-21 00:00: 00 2024-04-26 00:00:00 2024-04-26 14:34:44 Howard Alvarado Epic Open angle with borderline findings, high risk Open angle with borderline findings, high risk Disease Resolve d 03-21 00:00: 00 2024-04-26 00:00:00 2024-04-26 14:34:44 Howard Alvarado Epic Adenocarci noma of prostate Adenocarci noma of prostate Disease Resolve d 12 00:00: 00 2024-04-26 00:00:00 2024-04-26 14:34:44 Howard Alvarado Epic Allergies, Adverse Reactions, Alerts Allergy Name Allergy Type Status Severity Reaction(s) Onset Date Inactive Date Treating Clinician Comments Source Duloxeti ne Hcl Drug Intolera nce Active Dermatitis, Rash 8-20 00:00: 00 Blister Memshadia Alvarado Epic Duloxeti ne Propensi ty to adverse reaction s Active Hives, Itching, Rash 14 00:00: 00 Howard Alvarado Epic Iodinate d Contrast Media Drug Allergy Active Rash 430 00:00: 00 Memshadia Alvarado Epic Iodine Propensi ty to adverse reaction s Active Rash 03-21 00:00: 00 Memshadia Muñozann Epic IODINE DRUG INGREDI Active High Rash 03-21 00:00: 00 MHEOUT ALLERGIE S NOT ON FILE SYSTEMIC Active MHEOUT Social History Social Habit Start Date Stop Date Quantity Comments Source Gender identity 2024-02-03 06:59:45 Identifies as male gender (finding) [facility] Sexual orientation [facility] Alcoholic beverage intake 2024-08-02 00:00:00 2024-08-02 00:00:00 Lifetime non-drinker (finding) [facility] History of Social function 2024-08-02 00:00:00 2024-08-02 00:00:00 [facility] Tobacco use and exposure 2024-04-26 00:00:00 2024-04-26 00:00:00 Smokeless tobacco non-user [facility] Smoking Status Start Date Stop Date Source Never smoked tobacco Howard Alvarado [facility] Medications Ordered Medication Name Filled Medication Name Start Date Stop Date Current Medication? Ordering Clinician Indication Dosage Frequency Signature (SIG) Comments Components Source acetaminoph en (Tylenol 8 Hour) 650 MG ER tablet acetaminoph en (Tylenol 8 Hour) 650 MG ER tablet 04-26 14:27: 14 Yes 650mg Take 650 mg by mouth if needed for mild pain (1-3). Do not crush, chew, or split. Howard Alvarado [facility] Ascorbic Acid (vitamin C) 1000 MG tablet Ascorbic Acid (vitamin C) 1000 MG tablet 04-26 14:27: 14 Yes 1000mg QD Take 1,000 mg by mouth 1 time each day. Howard Alvarado [facility] cholecalcif nelson (Vitamin D-3) 125 MCG (5000 UT) capsule cholecalcif nelson (Vitamin D-3) 125 MCG (5000 UT) capsule 04-26 14:27: 14 Yes 5000U QD Take 5,000 Units by mouth 1 time each day. Howard Alvarado [facility] cyanocobala min (Vitamin B-12) 1000 MCG tablet cyanocobala min (Vitamin B-12) 1000 MCG tablet 04-26 14:27: 14 Yes 1000ug QD Take 1,000 mcg by mouth 1 time each day. Howard Alvarado [facility] NON FORMULARY NON FORMULARY 04-26 14:27: 14 Yes 1{capsu le} QD MDP cream Howard Alvarado [facility] Levomefolat e Glucosamine (METHYLFOLA TE PO) Levomefolat e Glucosamine (METHYLFOLA TE PO) 04-26 14:27: 14 Yes 1000ug QD Take 1,000 mcg by mouth 1 time each day. Howard Rivas potassium citrate CR (Urocit-K-5 ) 5 mEq ER tablet potassium citrate CR (Urocit-K-5 ) 5 mEq ER tablet 04-26 14:27: 14 Yes 5meq Take 5 mEq by mouth in the morning and 5 mEq at noon and 5 mEq in the evening. Take with meals. Do not crush, chew, or split.. Howard Rivas metoprolol succinate XL (Toprol-XL) 25 MG 24 hr tablet metoprolol succinate XL (Toprol-XL) 25 MG 24 hr tablet 18 00:00: 00 Yes 25mg QD Take 25 mg by mouth 1 time each day. Howard Rivas doxazosin (Cardura) 2 MG tablet doxazosin (Cardura) 2 MG tablet 12-07 00:00: 00 Yes TAKE 1 TABLET BY MOUTH ONCE DAILY AT NIGHT Howard Rivas bumetanide (Bumex) 0.5 MG tablet bumetanide (Bumex) 0.5 MG tablet 12-07 00:00: 00 Yes TAKE 1 TABLET BY MOUTH TWICE DAILY IN THE MORNING AND IN THE EVENING Howard Rivas allopurinol (Zyloprim) 100 MG tablet allopurinol (Zyloprim) 100 MG tablet 12-07 00:00: 00 Yes TAKE 1 TABLET BY MOUTH ONCE DAILY Howard Rivas spironolact one (Aldactone) 25 MG tablet spironolact one (Aldactone) 25 MG tablet 12-07 00:00: 00 Yes TAKE 1 TABLET BY MOUTH ONCE DAILY Howard Rivas apixaban (Eliquis) 5 MG tablet apixaban (Eliquis) 5 MG tablet 12-07 00:00: 00 Yes 5mg 5 mg, PO, Q12H, tab, 0 Refill(s) Howard Rivas aspirin (Vazalore) 81 MG capsule aspirin (Vazalore) 81 MG capsule 12-07 00:00: 00 Yes 81mg 81 mg = 1 cap, PO, Daily, 0 Refill(s) [facility] [place] [facility] DULoxetine (Cymbalta) [address] capsule DULoxetine (Cymbalta) [address] capsule 12-07 00:00: 00 08-02 00:00 :00 No 20mg 20 mg = 1 cap, PO, Daily, # 30 cap, 3 Refill(s), Pharmacy: [id number], 177.8, cm, 12/07/23 15:10:00 FLIGHT PARAMEDIC, Height, 134.091, kg, 12/07/23 15:10:00 FLIGHT PARAMEDIC, Weight Howard alvarez [facility] Immunizations Ordered Immunization Name Filled Immunization Name Date Status Comments Source Pfizer Purple Cap SARS-CoV-2 Pfizer Purple Cap SARS-CoV-2 2020-12-11 00:00:00 Completed [facility] Zoster, live Zoster, live 2018-11-22 00:00:00 Completed [facility] Influenza, High Dose Seasonal, Preservative Free Influenza, High Dose Seasonal, Preservative Free 2016-02-23 00:00:00 Completed [facility] Pneumococcal Polysaccharide PPSV23 Pneumococcal Polysaccharide PPSV23 2016-02-23 00:00:00 Completed [facility] Vital Signs Vital Name Observation Time Observation Value Comments S anton Systolic blood pressure 2024-08-02 14:21:00 176 mm[Hg] [facility] Diastolic blood pressure 2024-08-02 14:21:00 96 mm[Hg] [facility] Heart rate 2024-08-02 14:21:00 86 /min [facility] Body temperature 2024-08-02 14:21:00 36.78 Renuka [facility] Respiratory rate 2024-08-02 14:21:00 16 /min [facility] Body height 2024-08-02 14:21:00 167.6 cm [facility] Body weight 2024-08-02 14:21:00 143.337 kg [facility] BMI 2024-08-02 14:21:00 51.00 kg/m2 [facility] Oxygen saturation in Arterial blood by Pulse oximetry 2024-08-02 14:21:00 99 /min [facility] Systolic blood pressure 2024-08-02 14:21:00 176 mm[Hg] [facility] Diastolic blood pressure 2024-08-02 14:21:00 96 mm[Hg] [facility] Heart rate 2024-08-02 14:21:00 86 /min [facility] Body temperature 2024-08-02 14:21:00 36.78 Renuka [facility] Respiratory rate 2024-08-02 14:21:00 16 /min [facility] Body height 2024-08-02 14:21:00 167.6 cm Angel Luis rial [facility] Body weight 2024-08-02 14:21:00 143.337 kg Angel Luis rial [facility] BMI 2024-08-02 14:21:00 51.00 kg/m2 Angel Luis rial [facility] Oxygen saturation in Arterial blood by Pulse oximetry 2024-08-02 14:21:00 99 /min [facility] Systolic blood pressure 2024-04-26 14:35:00 137 mm[Hg] [facility] Diastolic blood pressure 2024-04-26 14:35:00 70 mm[Hg] [facility] Heart rate 2024-04-26 14:35:00 62 /min [facility] [place] [place] [facility] Body temperature 2024-04-26 14:35:00 36.61 Renuka [facility] Epic Respiratory rate 2024-04-26 14:35:00 16 /min [facility] Body height 2024-04-26 14:35:00 172.7 cm Angel Luis rial [facility] Body weight 2024-04-26 14:35:00 137.984 kg Angel Luis rial [place] [facility] BMI 2024-04-26 14:35:00 46.25 kg/m2 Angel Luis rial [place] [facility] Oxygen saturation in Arterial blood by Pulse oximetry 2024-04-26 14:35:00 97 /min [facility] Systolic blood pressure 2024-04-26 14:35:00 137 mm[Hg] [facility] Diastolic blood pressure 2024-04-26 14:35:00 70 mm[Hg] [facility] Heart rate 2024-04-26 14:35:00 62 /min Memor ial [facility] Body temperature 2024-04-26 14:35:00 36.61 Renuka [facility] Christian[facility] Respiratory rate 2024-04-26 14:35:00 16 /min Faheem [place] [facility] Body height 2024-04-26 14:35:00 172.7 cm Angel Luis Alvarado [facility] Body weight 2024-04-26 14:35:00 137.984 kg Angel Luis Alvarado [facility] BMI 2024-04-26 14:35:00 46.25 kg/m2 Angel Luismyron Alvarado [facility] Oxygen saturation in Arterial blood by Pulse oximetry 2024-04-26 14:35:00 97 /min [facility] Encounters Start Date/Time End Date/Time Encounter Type Admission Type Attending [facility] Facility Care Department Encounter ID Source 2024-08-07 17:02:00 Outpatient Jose Luis Vazquez [facility] [id number] [facility] 2024-07-16 14:38:01 Outpatient RobertoJose Luis soliz [facility] [id number] [facility] 2024-07-11 13:46:02 Outpatient RobertoJose Luis soliz [facility] [id number] [facility] 2024-08-02 14:30:00 2024-08-02 15:09:12 Office Visit Arash Dillon [id number] Howard Alvarado [facility] 2024-08-02 14:07:49 2024-08-02 15:09:12 Outpatient ARASH DILLON [facility] [id number] [facility] 2024-04-26 14:30:00 2024-04-26 15:06:30 Office Visit Arash Dillon [id number] Howard Alvarado [facility] 2024-04-26 14:20:28 2024-04-26 15:06:30 Outpatient Elective ARASH DILLON MHWilmerOUT MHEOUT [id number] MHEOUT Notes Date/Time Note Provider [facility]50[facility]-21 17:54:09* [id number] 17:54:09 [facility] [id number] 17:54:09* Arash Dillon MD - 08/02/2024 2:30 PM CDT History of Present Illness HPI Developed a rash, reason unclear but off Cymbalta as may have been contributing. Patient has been on Cymbalta for several months. For the rash. It is a fairly impressive bullous disclamation still has not resolved. Cardiology stopped PT. Seeing dermatology for the rash. Gait is not any worse Allergies as of 08/02/2024 - Reviewed 08/02/2024 Allergen Reaction Noted Duloxetine hcl Dermatitis and Rash 07/02/2024 Iodine Rash 03/21/2012 Duloxetine Hives, Itching, and Rash 05/26/2024 Iodinated contrast media Rash 03/12/2019 has a current medication list which includes the following prescription(s): acetaminophen, allopurinol, apixaban, vitamin c, aspirin, bumetanide, cholecalciferol, cyanocobalamin, doxazosin, levomefolate glucosamine, magnesium carbonate (antacid), metoprolol succinate xl, NON FORMULARY, potassium citrate cr, and spironolactone. Answers submitted by the patient for this visit: Review of Systems (Submitted on 08/01/2024) Rash: Yes Vitals:08/02/24 1421 BP: (!) 176/96 Pulse: 86 Resp: 16 Temp: 36.8 ?C (98.2 ?F) SpO2: 99% Neurological Exam Awake and alert. Cranial nerves are unremarkable. Strength full. Sensation decreased distally. Reflexes symmetric. Cerebellar exam demonstrates no ataxia. Ambulates with a cane No results found for this or any previous visit. No MRI head results found for the past 12 months Assessment & PlanDiagnoses and all orders for this visit: Cervical arthritis with myelopathy Serial exams. [facility] [id number] 17:54:09Upcoming Encounters Health Maintenance Due Date Last Done Comments Lipid Panel 1935 Medicare Annual Wellness (AWV) 1935 Diabetes: Foot Exam 1945 Diabetes: Retinopathy Screening 1945 DTaP/Tdap/Td Vaccines (1 - Tdap) 1954 Respiratory Syncytial Virus (RSV) or >=60 (1 - 1-dose 60+ series) 1995 Pneumococcal Vaccine: 65+ Years (2 of 2 - PCV) 02/22/2017 02/23/2016 Zoster Vaccines (2 of 3) 01/17/2019 11/22/2018 Influenza Vaccine (#1) 2024 02/23/2016 Diabetes: Hemoglobin A1C 09/26/2024 024, 03/19/2024 Diabetes: Urine Protein Screening 06/26/2025 06/26/2024, 03/19/2024 HIB Vaccines Aged Out No longer eligi ble based on patient's age to complete this topic HPV Vaccines Aged Out No longer eligi ble based on patient's age to complete this topic Hepatitis A Vaccines Aged Out No long er eligible based on patient's age to complete this topic Hepatitis B Vaccines Aged Out No long er eligible based on patient's age to complete this topic IPV Vaccines Aged Out No longer eligi ble based on patient's age to complete this topic Meningococcal Vaccine Aged Out No damari kelby eligible based on patient's age to complete this topic Rotavirus Vaccines Aged Out No longer eligible based on patient's age to complete this topic [facility] [id number] 17:54:09 Diagnosis Cervical arthritis with myel opathy - Primary [facility] [id number] 15:07:45* * Consultation (Routine) - Closed Specialty Diagnoses / Procedures Referred By Contac t Referred To Contact Neurology Diagnoses Disease of spinal cord, unspecified Polyneuropathy, unspecified Procedures ESTABLISHED - NEUROLOGY [facility] OFFICE [address] [place] [address] Arash Dillon MD [address] [place] [address] Referral ID Status Reason Start Date Expiration Date Visits Re quested Visits Authorized [id number] Closed 04/26/2024 10/23/2024 1 1 [facility] [id number] 15:07:45 [place] [id number] 15:07:45* Arash Dillon MD - 04/26/2024 2:30 PM CDT HPI Patient returns for reevaluation. Stable, no falls. 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 Poor candidate for surgery given age and underlying medical problems. Allergies as of 04/26/2024 - Reviewed 04/26/2024 Allergen Reaction Noted Iodine Rash 03/21/2012 has a current medication list which includes the following prescription(s): acetaminophen, allopurinol, apixaban, vitamin c, aspirin, bumetanide, cholecalciferol, cyanocobalamin, doxazosin, levomefolate glucosamine, magnesium carbonate (antacid), metoprolol succinate xl, NON FORMULARY, potassium citrate cr, spironolactone, and duloxetine. Vitals:04/26/24 1435 BP: 137/70 Pulse: 62 Resp: 16 Temp: 36.6 ?C (97.9 ?F) SpO2: 97% Neurological Exam Awake and alert. Cranial nerves are unremarkable. Strength full. Sensation intact. Reflexes symmetric. Cerebellar exam demonstrates no ataxia. Gait normal. Ambulates with a cane No results found for this or any previous visit. No MRI head results found for the past 12 months Assessment & PlanCervical arthritis with myelopathy Stable, continue PT RTC 3-4 mo [facility] [id number] 15:07:45Upcoming Encounters Health Maintenance Due Date Last Done Comments Lipid Panel 1935 Medicare Annual Wellness (AWV) 1935 Diabetes: Foot Exam 1945 Diabetes: Retinopathy Screening 1945 DTaP/Tdap/Td Vaccines (1 - Tdap) 1954 Respiratory Syncytial Virus (RSV) or >=60 (1 - 1-dose 60+ series) 1995 Pneumococcal Vaccine: 65+ Ye ars (2 of 2 - PCV) 02/22/2017 02/23/2016 Zoster Vaccines (2 of 3) 01/17/2019 11/22/2018 Diabetes: Hemoglobin A1C 06/19/2024 03/19/2024 Influenza Vaccine (Season Ended) 2024 02/23/20 16 HIB Vaccines Aged Out No longer eligi ble based on patient's age to complete this topic HPV Vaccines Aged Out No longer eligi ble based on patient's age to complete this topic Hepatitis A Vaccines Aged Out No long er eligible based on patient's age to complete this topic Hepatitis B Vaccines Aged Out No long er eligible based on patient's age to complete this topic IPV Vaccines Aged Out No longer eligi ble based on patient's age to complete this topic Meningococcal Vaccine Aged Out No damari kelby eligible based on patient's age to complete this topic Rotavirus Vaccines Aged Out No longer eligible based on patient's age to complete this topic [id number] 15:07:45 Diagnosis Cervical arthritis with myel opathy - [facility] [id number] 15:07:45 [facility]
--- NOTE | 2024-08-19 18:30 | RAD REPORT ---
EXAMINATION: ONE VIEW CHEST XR CLINICAL INDICATION: Male, 89 years old.COUGH TECHNIQUE: 1 View, AP supine, X-ray of the chest was performed. [id number]. COMPARISON: 04/16/2024 FINDINGS: Lungs and pleura: Clear lungs. No effusion. Heart and mediastinum: Normal heart size. Unremarkable mediastinal contours. Osseous structures: No acute abnormality. Tubes/lines: None Other: None. IMPRESSION: No acute intrathoracic abnormality.
[2024-08-19 19:07] LABS: Absolute Eosinophils 0.4 K/uL (0-0.5); Absolute Lymphocytes (CBC) 0.9 K/uL (0.7-4.9); Absolute Monocytes 0.6 K/uL (0.1-1.3); Basophils % 0.3 % (0-1.3); Eosinophils % 7.4 % (0-4.4); Hematocrit 34.5 % (39.6-49.0); Hemoglobin 10.9 g/dL (13.6-17.9); Lymphocytes % 14.7 % (15.3-44.8); MCH 27.9 pg (27.0-35.0); MCHC 31.7 g/dL (32.0-36.0); MCV 87.9 fL (80-100); MPV 8.8 fL (7.6-11.3); Monocytes % 10.3 % (3.3-12.3); Neutrophils % 67.3 % (41.7-73.7); Platelets 224 thou/uL (152-406); RBC Red Blood Cell Count 3.93 M/uL (4.33-5.43); Red Cell Distribution Width 16.7 % (12.1-15.2)
[2024-08-19 19:11] LABS: PT Prothrombin Time 14.5 SECONDS (9.4-12.5); Protime INR 1.3
[2024-08-19 19:33] LABS: Albumin 2.5 g/dL (3.4-5.0); Albumin/Globulin Ratio 0.6 (1.1-1.8); Anion Gap 9.3 mEq/L (5.0-15.0); Bilirubin Direct 0.2 mg/dL (0-0.2); Bilirubin Indirect, Calculated 0.3 mg/dL (0.2-0.8); Bilirubin Total 0.5 mg/dL (0.2-1.0); Globulin 4.1 g/dL (2.3-3.5); Magnesium 2.1 mg/dL (1.6-2.4); Potassium 4.3 mEq/L (3.5-5.1); Protein, Total 6.6 g/dL (6.4-8.2); Troponin High Sensitivity 24.5 pg/mL (<58.9)
--- NOTE | 2024-08-19 19:41 | EDPHYS ---
Physician Documentation [facility] Name: Remigio Akins Age: 89 yrs Sex: Male : 1935 Arrival Date: 08/19/2024 Time: 16:23 Bed 16 Private MD: ED Physician Nam Abbott HPI: 08/19 19:32 This 89 yrs old Black Male presents to ER via Wheelchair with complaints of Rash. marisel 19:32 The patient's rash thought to be caused by Dermatitis bullous lesion all over. The rash marisel is located on the body diffusely. The rash can be described as bullous, diffuse. Onset: The symptoms/episode began/occurred 14 day(s) ago. Associated signs and symptoms: Pertinent positives: Pain. Severity of symptoms: At their worst the symptoms were moderate in the emergency department the symptoms are unchanged. Treatment given at home: Benadryl. The patient has not experienced similar symptoms in the past. Historical: - Allergies: 16:59 Iodine; cm10 - PMHx: 16:59 Gout; Hypertension; kidney problems; PE; Sleep Apnea; cm10 - Immunization history:: Adult Immunizations up to date. - Infectious Disease History:: Denies. - Social history:: Smoking status: Patient denies any tobacco usage or history of. - Family history:: not pertinent. ROS: 19:32 Constitutional: Negative for fever, chills, and weight loss, Eyes: Negative for injury, marisel pain, redness, and discharge, ENT: Negative for injury, pain, and discharge, Neck: Negative for injury, pain, and swelling, Cardiovascular: Negative for chest pain, palpitations, and edema, Respiratory: Negative for shortness of breath, cough, wheezing, and pleuritic chest pain, Abdomen/GI: Negative for abdominal pain, nausea, vomiting, diarrhea, and constipation, Back: Negative for injury and pain, : Negative for injury, bleeding, discharge, and swelling, MS/Extremity: Negative for injury and deformity, Neuro: Negative for headache, weakness, numbness, tingling, and seizure, Psych: Negative for depression, anxiety, suicide ideation, homicidal ideation, and hallucinations, Allergy/Immunology: Negative for hives, rash, and allergies, Endocrine: Negative for neck swelling, polydipsia, polyuria, polyphagia, and marked weight changes, Hematologic/Lymphatic: Negative for swollen nodes, abnormal bleeding, and unusual bruising, 19:32 Skin: Positive for cellulitis, erythema, rash, diffusely, Exam: 19:33 Constitutional: This is a well developed, well nourished patient who is awake, alert, marisel and in no acute distress. Head/Face: Normocephalic, atraumatic. Eyes: Pupils equal round and reactive to light, extra-ocular motions intact. Lids and lashes normal. Conjunctiva and sclera are non-icteric and not injected. Cornea within normal limits. Periorbital areas with no swelling, redness, or edema. ENT: Nares patent. No nasal discharge, no septal abnormalities noted. Tympanic membranes are normal and external auditory canals are clear. Oropharynx with no redness, swelling, or masses, exudates, or evidence of obstruction, uvula midline. Mucous membranes moist. Neck: Trachea midline, no thyromegaly or masses palpated, and no cervical lymphadenopathy. Supple, full range of motion without nuchal rigidity, or vertebral point tenderness. No Meningismus. Chest/axilla: Normal chest wall appearance and motion. Nontender with no deformity. No lesions are appreciated. Cardiovascular: Regular rate and rhythm with a normal S1 and S2. No gallops, murmurs, or rubs. Normal PMI, no JVD. No pulse deficits. Respiratory: Lungs have equal breath sounds bilaterally, clear to auscultation and percussion. No rales, rhonchi or wheezes noted. No increased work of breathing, no retractions or nasal flaring. Abdomen/GI: Soft, non-tender, with normal bowel sounds. No distension or tympany. No guarding or rebound. No evidence of tenderness throughout. Back: No spinal tenderness. No costovertebral tenderness. Full range of motion. Male : Normal genitalia with no discharge or lesions. Neuro: Awake and alert, GCS 15, oriented to person, place, time, and situation. Cranial nerves II-XII grossly intact. Motor strength 5/5 in all extremities. Sensory grossly intact. Cerebellar exam normal. Normal gait. Psych: Awake, alert, with orientation to person, place and time. Behavior, mood, and affect are within normal limits. 19:33 ECG was reviewed by the Attending Physician. 19:33 Skin: cellulitis, that is minimal, confluent, diffuse bullous lesions. Vital Signs: 16:57 BP 146 / 67; Pulse 94; Resp 16; Temp 98.6; Pulse Ox 97% on R/A; Weight 136.08 kg; cm10 Height 5 ft. 11 in. ; Pain 5/10; 18:00 BP 166 / 72; Pulse 93; Resp 20; Pulse Ox 96% on R/A; db 19:15 BP 160 / 74; Pulse 90; Resp 18; Pulse Ox 94% on R/A; kj2 21:20 BP 156 / 78; Pulse 90; Resp 20; Temp 97.9; Pulse Ox 100% on R/A; kj2 16:57 Body Mass Index 41.84 (136.08 kg, 180.34 cm) cm10 16:57 Pain Scale: Adult cm10 [place] Coma Score: 19:33 Eye Response: spontaneous(4). Motor Response: obeys commands(6). Verbal Response: marisel oriented(5). Total: 15. Procedures: 20:30 Peripheral line: by aseptic technique a peripheral line was placed in the right [facility] external jugular vein. MDM: 16:49 Patient medically screened. marisel 19:38 Differential diagnosis: impetigo, allergic reaction. Data reviewed: vital signs, nurses [facility] notes, lab test result(s), EKG, radiologic studies, plain films. Consideration of Admission/Observation Escalation of care including admission/observation considered. I considered the following discharge prescriptions or medication management in the emergency department Medications were administered in the Emergency Department. See MAR. Independent interpretation of the following test(s) in the Emergency Department EKG: See my EKG interpretation above. Test considered but Not performed: CT: no ct trauma. Care significantly affected by the following chronic conditions: Hypertension, Obesity, Chronic Kidney Disease. 08/19 16:50 Order name: Basic Metabolic Panel; Complete Time: 19:47 [facility] 08/19 16:50 Order name: CBC with Diff; Complete Time: 19:47 [facility] 08/19 16:50 Order name: LFT's; Complete Time: 19:47 [facility] 08/19 16:50 Order name: Magnesium; Complete Time: 19:47 [facility] 08/19 16:50 Order name: NT PRO-BNP; Complete Time: 19:47 [facility] 08/19 16:50 Order name: PT-INR; Complete Time: 19:47 [facility] 08/19 16:50 Order name: Troponin HS; Complete Time: 19:47 [facility] 08/19 16:50 Order name: Blood Culture Adult (2) [facility] 08/19 16:50 Order name: Lactate w/ 2H reflex if indic.; Complete Time: 20:30 [facility] 08/19 16:50 Order name: Urinalysis w/ reflexes; Complete Time: 20:30 [facility] 08/19 16:50 Order name: Lipase; Complete Time: 19:47 [facility] 08/19 16:50 Order name: XRAY Chest (1 view); Complete Time: 18:51 [facility] 08/19 16:50 Order name: EKG; Complete Time: 16:50 [facility] 08/19 16:50 Order name: Cardiac monitoring; Complete Time: 18:26 [facility] 08/19 16:50 Order name: EKG - Nurse/Tech; Complete Time: 18:26 [facility] 08/19 16:50 Order name: IV Saline Lock; Complete Time: 18:26 [facility] 08/19 16:50 Order name: Labs collected and sent; Complete Time: 18:26 [facility] 08/19 16:50 Order name: O2 Per Protocol; Complete Time: 18:26 [facility] 08/19 16:50 Order name: O2 Sat Monitoring; Complete Time: 18:26 [facility] 08/19 18:57 Order name: Labs - recollect needed: recollect lactate; Complete Time: 20:01 08/19 19:28 Order name: IV Saline Lock - Large Bore; Complete Time: 20:23 marisel EC:33 Rate is 88 beats/min. Rhythm is regular. QRS [place] is Normal. [place] interval is normal. QRS marisel interval is normal. QT interval is normal. No Q waves. T waves are Normal. No ST changes noted. Clinical impression: NSR w/ Non-specific ST/T Changes, Abnormal EKG without significant change, and No evidence of ischemia. Interpreted by me. Reviewed by me. Administered Medications: 20:23 Drug: Piperacillin-Tazobactam IVPB 3.375 grams IVPB once over 60 mins; (mix in NS 100 kj2 mL) Route: IVPB; Infused Over: 60 mins; Site: right antecubital; 21:23 Follow up: IV Status: Completed infusion; IV Intake: 100ml kj2 21:24 Follow up: Response: No adverse reaction kj2 20:23 Drug: Boostrix Tdap IM 0.5 ml IM once; as a single dose Route: IM; Site: left deltoid; kj2 20:47 Follow up: Response: No adverse reaction kj2 20:46 Drug: fentaNYL (PF) IVP 50 mcg IVP once Route: IVP; Site: right antecubital; kj2 21:33 Follow up: Response: No adverse reaction; Nausea is decreased kj2 20:46 Drug: Ondansetron IVP 4 mg IVP once; over 2 minutes Route: IVP; Site: right antecubital;kj2 21:33 Follow up: Response: No adverse reaction; Nausea is decreased kj2 21:56 Drug: NS 0.9% IV 1000 ml IV at 125 ml/hr continuous Route: IV; Rate: 125 ml/hr; Site: kj2 right antecubital; 22:09 Follow up: IV Status: Infusion continued upon transfer kj2 Disposition Summary: 08/19/24 19:41 Transfer Ordered Notes: Transfer Location: [facility] marisel Reason: Higher level of care marisel Condition: Fair marisel Problem: an ongoing problem marisel Symptoms: have worsened marisel Accepting Physician: to [facility], [place] , medicine(08/19/24 22:27) kj2 Diagnosis - Bullous pemphigoid 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 EDMS EDMS 16:50 16:50 CBC+H.LAB.BRZ ordered. EDMS EDMS 16:50 16:50 HEPATIC FUNCTION+C.LAB.BRZ ordered. EDMS EDMS 16:50 16:50 MAGNESIUM+C.LAB.BRZ ordered. EDMS EDMS 16:50 16:50 PROBNP+C.LAB.BRZ ordered. EDMS EDMS 16:50 16:50 PROTIME (+INR)+COAG.LAB.BRZ ordered. EDMS EDMS 16:50 16:50 Troponin High Sensitivity+C.LAB.BRZ ordered. EDMS EDMS 16:50 16:50 BLOOD CULTURE*+BA.LAB.BRZ ordered. EDMS EDMS 16:50 16:50 LACTATE+C.LAB.BRZ ordered. EDMS EDMS 16:50 16:50 Urinalysis+U.LAB.BRZ ordered. EDMS EDMS 16:50 16:50 LIPASE+C.LAB.BRZ ordered. EDMS EDMS 22:27 19:41 to [facility] [place] , [facility] kj2
--- NOTE | 2024-08-19 19:41 | ER ---
Nurse's Notes 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 Pt states that his began 2 months ago. Coronavirus screen: Client denies travel out of the [place] in the last 14 days. Ebola Screen: Patient denies travel to an Ebola-affected area in the 21 days before illness onset. No symptoms or risks identified at this time. Initial Sepsis Screen: Does the patient meet any 2 criteria? No. Patient's initial sepsis screen is negative. Does the patient have a suspected source of infection? No. Patient's initial sepsis screen is negative. Risk Assessment: Do you want to hurt yourself or someone else? Patient reports no desire to harm self or others. Onset of symptoms was August 19, 2024. 16:57 Method Of Arrival: Wheelchair cm10 16:57 Acuity: RUDDY 3 cm10 Triage Assessment: 16:59 General: Appears in no apparent distress. comfortable, Behavior is calm, cooperative. cm10 Neuro: No deficits noted. Level of Consciousness is awake, alert, obeys commands, Oriented to person, place, time, situation, Appropriate for age. Respiratory: No deficits noted. Airway is patent Respiratory effort is even, unlabored, Respiratory pattern is regular, symmetrical. Historical: - Allergies: 16:59 Iodine; cm10 - PMHx: 16:59 Gout; Hypertension; kidney problems; PE; Sleep Apnea; cm10 - Immunization history:: Adult Immunizations up to date. - Infectious Disease History:: Denies. - Social history:: Smoking status: Patient denies any tobacco usage or history of. - Family history:: not pertinent. Screenin:15 [facility] ED Fall Risk Assessment (Adult) History of falling in the last 3 months, kj2 including since admission No falls in past 3 months (0 pts) Confusion or Disorientation No (0 pts) Intoxicated or Sedated No (0 pts) Impaired Gait Yes (1 pt) Mobility Assist Device Used Yes (1 pt) Altered Elimination No (0 pt) Score/Fall Risk Level 0 - 2 = Low Risk Maintained a safe environment, Educated pt \T\ family on fall prevention, incl call for assistance when getting out of bed, Hourly rounding (assess needs \T\ fall precautionary measures) done. Abuse screen: Denies threats or abuse. Denies injuries from another. Nutritional screening: No deficits noted. Tuberculosis screening: No symptoms or risk factors identified. Assessment: 18:00 Reassessment: Patient appears in no apparent distress at this time. Patient and/or db family updated on plan of care and expected duration. Pain level reassessed. Patient is alert, oriented x 3, equal unlabored respirations, skin warm/dry/pink. General: Appears in no apparent distress. comfortable, Behavior is calm, cooperative. Pain: Complains of pain in abdomen, right arm, left arm, right leg and left leg. Neuro: Level of Consciousness is awake, alert, obeys commands, Oriented to person, place, time, situation. Respiratory: Airway is patent Respiratory effort is even, unlabored, Respiratory pattern is regular, symmetrical. Derm: Rash noted that is. 18:41 Reassessment: PATIENT PROVIDED URINAL. db 19:05 Reassessment: Patient appears in no apparent distress at this time. Patient and/or kj2 family updated on plan of care and expected duration. Pain level reassessed. Patient is alert, oriented x 3, equal unlabored respirations, skin warm/dry/pink. 20:32 Reassessment: RN ATTEMPTED TO CALL REPORT, NO ANSWER AT 2029 AND 2031. kj2 20:47 Reassessment: Patient appears in no apparent distress at this time. Patient and/or kj2 family updated on plan of care and expected duration. Pain level reassessed. Patient is alert, oriented x 3, equal unlabored respirations, skin warm/dry/pink. 20:48 Reassessment: RN ATTEMPT TO CALL REPORT TO TRANSFERRING HOSPITAL, NO ANSWER. kj2 20:56 Reassessment: MESSAGE GIVEN TO DEVON, ASKED ED RN TO CALL BACK OR SHE WILL HAVE THE kj2 NURSE TO RETURN CALL SHORTLY. 21:15 Reassessment: REPORT GIVEN TO ERENDIRA LORENZO AT [facility]. kj2 21:59 Reassessment: Patient appears in no apparent distress at this time. Patient and/or kj2 family updated on plan of care and expected duration. Pain level reassessed. Patient is alert, oriented x 3, equal unlabored respirations, skin warm/dry/pink. [facility] HERE TO TRANSPORT TO [facility]. Vital Signs: 16:57 BP 146 / 67; Pulse 94; Resp 16; Temp 98.6; Pulse Ox 97% on R/A; Weight 136.08 kg; cm10 Height 5 ft. 11 in. ; Pain 5/10; 18:00 BP 166 / 72; Pulse 93; Resp 20; Pulse Ox 96% on R/A; db 19:15 BP 160 / 74; Pulse 90; Resp 18; Pulse Ox 94% on R/A; kj2 21:20 BP 156 / 78; Pulse 90; Resp 20; Temp 97.9; Pulse Ox 100% on R/A; kj2 16:57 Body Mass Index 41.84 (136.08 kg, 180.34 cm) cm10 16:57 Pain Scale: Adult cm10 [place] Coma Score: 19:33 Eye Response: spontaneous(4). Motor Response: obeys commands(6). Verbal Response: marisel oriented(5). Total: 15. ED Course: 16:28 Patient arrived in ED. mg5 16:49 Nam Abbott MD is Attending Physician. [facility] 16:59 Triage completed. cm10 16:59 Arm band placed on Patient placed in waiting room. cm10 17:43 Roxana Nagel, RN is Primary Nurse. db 18:10 XRAY Chest (1 view) In Process Unspecified. EDMS 18:20 Initial lab(s) drawn, by me, sent to lab. EKG done. Inserted saline lock: 22 gauge in db left antecubital area, using aseptic technique. Blood collected. Flushed with 10 mL NS. 18:31 Patient has correct armband on for positive identification. Bed in low position. Call db light in reach. Side rails up X2. Client placed on continuous cardiac and pulse oximetry monitoring. NIBP monitoring applied. quality assurance monitor final on. Pulse ox on. NIBP on. 18:53 Door closed. Noise minimized. Lights dimmed. Warm blanket given. kc6 19:15 Provided Education on: CALL LIGHT. kj2 19:27 Tanika Hurd ERENDIRA is Primary Nurse. kj2 20:01 Urinalysis w/ reflexes Sent. kj2 22:06 No provider procedures requiring assistance completed. kj2 22:07 Patient transferred, IV remains in place. kj2 Administered Medications: 20:23 Drug: Piperacillin-Tazobactam IVPB 3.375 grams IVPB once over 60 mins; (mix in NS 100 kj2 mL) Route: IVPB; Infused Over: 60 mins; Site: right antecubital; 21:23 Follow up: IV Status: Completed infusion; IV Intake: 100ml kj2 21:24 Follow up: Response: No adverse reaction kj2 20:23 Drug: Boostrix Tdap IM 0.5 ml IM once; as a single dose Route: IM; Site: left deltoid; kj2 20:47 Follow up: Response: No adverse reaction kj2 20:46 Drug: fentaNYL (PF) IVP 50 mcg IVP once Route: IVP; Site: right antecubital; kj2 21:33 Follow up: Response: No adverse reaction; Nausea is decreased kj2 20:46 Drug: Ondansetron IVP 4 mg IVP once; over 2 minutes Route: IVP; Site: right antecubital;kj2 21:33 Follow up: Response: No adverse reaction; Nausea is decreased kj2 21:56 Drug: NS 0.9% IV 1000 ml IV at 125 ml/hr continuous Route: IV; Rate: 125 ml/hr; Site: kj2 right antecubital; 22:09 Follow up: IV Status: Infusion continued upon transfer kj2 Intake: 21:23 IV: 100ml; Total: 100ml. kj2 Outcome: 19:41 ER care complete, transfer ordered by MD. joiner 22:07 Condition: stable kj2 22:08 Instructed on the need for transfer, kj2 22:08 Transferred to [facility], kj2 22:27 Patient left the ED. kj2 Signatures: Dispatcher [employer] EDNam Aguilar MD MD cha Campbell, Kaitlyn, RN RN kc6 Roxana Nagel, ERENDIRA RN db Latosha Torres RN RN cm10 Sue Lopez 5 Tanika Hurd RN RN kj2
[2024-08-19] MEDS ORDERED: TDAP (DIPHTH,PERTUSS(ACELL),TET VAC) 0.5 ML VIAL IMVAC ONE (20:07)
[2024-08-19] MEDS ORDERED: PIPERACIL/TAZO 3.375 GM VIAL IV ONE (20:08)
[2024-08-19] MEDS ORDERED: NA CHLORIDE 0.9% 100 ML ONE (20:08)
[2024-08-19 20:11] LABS: Specific Gravity 1.016 (1.005-1.030); Sqamous Epithelial <5 /HPF (None Seen); Urine Bacteria <20 /HPF (<20); Urine Bilirubin NEGATIVE (Negative); Urine Blood Negative (Negative); Urine Clarity Clear (Clear); Urine Color Light-Yellow (Yellow); Urine Culture Reflex Order NOT NEEDED; Urine Glucose NEGATIVE (Negative); Urine Ketones NEGATIVE (Negative); Urine Microscopic Reflex YN ORDER UMIC; Urine Nitrite NEGATIVE (Negative); Urine Protein 2+ (Negative); Urine RBC <5 /HPF (None Seen); Urine Urobilinogen Normal (Normal); Urine WBC <5 /HPF (<5); Urine pH 5.5 (5.0-7.0)
[2024-08-19] MEDS ORDERED: ONDANSETRON 4 MG/2 ML VIAL ONE (20:38)
[2024-08-19] MEDS ORDERED: FENTANYL CITR 100 MCG/2 ML ONE (20:39)
[2024-08-19] MEDS ORDERED: NA CHLORIDE 0.9% 1,000 ML ONE (21:39)
[2024-08-19 23:59] VITALS: BP 156/78; TEMP 97.9; O2SAT 100
--- NOTE | 2024-08-20 12:26 | EKG ---
Test Date: 2024-08-19 Test Time: 18:05:11 Resin Coater: LISSY MEASUREMENT RESULTS: Intervals: Rate: 88 [place]: 152 QRSD: 92 QT: 384 QTc: 464 [place]: P: 74 [place]: 152 QRS: -12 T: 78 INTERPRETIVE STATEMENTS: Sinus rhythm with frequent premature ventricular complexes Otherwise normal ECG Compared to ECG 04/16/2024 20:19:50 Ventricular premature complex(es) now present Electronically Signed On 08-20-24 12:25:36 CDT by Ty Arzate
== END 2024-08-19 22:27 | disposition short-term general hospital (02) ==
LOC: ER 16:23
DX: L12.0 Bullous pemphigoid (principal); L03.818 Cellulitis of other sites; L03.319 Cellulitis of trunk, unspecified; L03.329 Acute lymphangitis of trunk, unspecified; L03.898 Acute lymphangitis of other sites; L03.129 Acute lymphangitis of unspecified part of limb; E66.9 Obesity, unspecified; Z68.41 Body mass index [BMI] 40.0-44.9, adult; Z79.01 Long term (current) use of anticoagulants; I10 Essential (primary) hypertension
CPT/HCPCS: 36569; 96365; 93005; 87040 ×2; 85025; 81001; 80048; 36415; 83735; 85610; 80076; 83605; 84484; 83690; 83880; 71045; 96375; 96372; 99285; J2543; J3010; J2405; J7030